=== PATIENT | male | born 1955 | race Caucasian/White ===

== ENCOUNTER 2018-07-20 18:42 | Inpatient (IN) | payer MEDICAID ==
[~2018-07-20] VITALS: Ht 162.5 cm; Wt 50.4 kg
--- NOTE | ~2018-07-20 | PR ---
[place], [place] PROGRESS NOTE NAME: DIANNA CURRY UNIT #: [id number] ROOM: 426 DOCTOR: JOEL MARSH MD BIRTHDATE: [birth year] DOS: 07/31/2018 SUBJECTIVE: The patient has a tracheostomy and has oxygen being delivered via a mask. He is awake and looks around little bit. He is not tachypneic. OBJECTIVE: VITAL SIGNS: Temperature is normal. NECK: JVP is normal. CARDIOVASCULAR: Clear to auscultation, no murmurs. LUNGS: He has some crackles, but breath sounds are fairly decent. EXTREMITIES: No edema in lower extremities. IMPRESSION: The patient has chronic respiratory failure. There is no evidence of heart failure. No new recommendations. JOEL MARSH MD CM:PNTRANS [id number] JOEL MARSH MD 08/01/18 1748 interface
--- NOTE | ~2018-07-20 | CON ---
[place], [place] REPORT OF CONSULTATION NAME: DIANNA CURRY UNIT #: [id number] ROOM: 426 DOCTOR: MAGNOLIA BEE MD BIRTHDATE: [birth year] DOS: 07/28/2018 CONSULTATION REQUESTED BY: Consultation for the patient was requested by Dr. Prashant Montenegro. REASON FOR CONSULTATION: To assess the patient's permanent tracheostomy and excessive secretion productions and other respiratory problems. HISTORY OF PRESENT ILLNESS: History could not be obtained from the patient since the patient has a permanent tracheostomy, unable to communicate, and does not have any normal mental status as well for communication. Review of the medical record documentation by the other physicians. HISTORY OF PRESENT ILLNESS: This is a 63-year-old white male patient who is a long-term resident of [facility]. The patient has been admitted to the hospital. The patient has been noted with acute drop of the hemoglobin and hematocrit for GI bleeding. He has been assessed for that. The patient has been also noted with significant increased secretion production from the tracheostomy as well on admission. The patient has a permanent tracheostomy in place for the [facility]p. He has a culture of the endotracheal secretions done on admission. The patient hospitalized on 07/20/2018 with noted Gram-negative bacterial isolation. Stool occult blood was also noted positive on admission. This morning of assessment, the patient does not show any signs of respiratory distress. Secretion production has been noted. Moderate to copious amount per nursing respiratory staff, required frequent suction. PAST MEDICAL HISTORY: 1. The patient reported history of COPD. 2. Chronic deep venous thrombosis of the lower extremity. 3. Chronic dysphagia. 4. Past pulmonary embolism. 5. 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 6. Ulcerative colitis. 7. Chronic respiratory failure, permanent tracheostomy, details for the patient of that, why was it done for this patient, unknown. PAST SURGICAL HISTORY: Reported: 1. PEG tube placement. 2. Tracheostomy. FAMILY HISTORY: Unknown. SOCIAL HISTORY: Not known as well exactly. MEDICATIONS: Medications which has been currently administered for this patient on admission, use of Pulmicort Respules, albuterol sulfate, Eliquis, Reglan, Protonix, magnesium oxide, vancomycin, and meropenem. DRUG ALLERGIES: REPORTED ALLERGIES TO PENICILLIN, THE ALLERGIC REACTIONS WERE [place], [place] REPORT OF CONSULTATION NAME: DIANNA CURRY UNIT #: [id number] ROOM: 426 DOCTOR: MAGNOLIA BEE MD BIRTHDATE: [birth year] UNKNOWN. PHYSICAL EXAMINATION: GENERAL: A 63-year-old male patient, currently comfortable, resting eyes closed without any acute distress. The patient's height was recorded by nursing staff. Height 5 feet 4 inches, weight 111 pounds, BMI 19. VITAL SIGNS: Temperature 100.2 degrees Fahrenheit and normal temperature recorded intermittently, respiratory rate of 18, heart rate of 84-90, blood pressure 119/71-118/62. Pulse oxygen saturation recorded on 6 L nasal cannula 99% saturation with ____. HEENT: Tracheostomy in place. NECK: Supple. Head was atraumatic. CARDIOVASCULAR: S1, S2 was audible. LUNGS: Patient was noted without any wheeze or crackle at the present time. ABDOMEN: Soft. PEG tube in place. EXTREMITIES: The patient with loss of muscle mass. There was no edema. SKIN: Visible skin. No lesions or rashes. MUSCULOSKELETAL: Otherwise noted without any gross deformities. LABORATORY DATA: Reviewed. The culture of the endotracheal aspirate on of this month, moderate growth of Proteus mirabilis sensitive to multiple antibiotics including meropenem and Zosyn. The vancomycin trough level on ____ 22.9. Blood culture from 07/24/2018, no bacterial growth. BMP that was done this morning was normal BUN and creatinine. Electrolytes normal. CBC this morning, WBC count 5.1, hemoglobin of 8.0, hematocrit 27.2. The chest x-ray that was done on 07/26/2018 was reviewed with the patient from the fax images shows tracheostomy noted in proper position. PICC line noted in place in the right arm. There was no acute pulmonary infiltration seen. IMPRESSION: 1. The patient has been noted with tracheobronchitis versus colonization of the ____ gram-negative infection, Proteus, which noted relatively resistant infection. 2. Permanent tracheostomy. The patient with respiratory failure, per patient which is noted chronic as well as oropharyngeal dysphagia, PEG tube in place. No acute recent GI bleeding, which has been assessed for this patient by GI services and the patient had a colonoscopy done as well as a polypectomy on 07/24/2018 which was noted to be tubular adenoma with low-grade dysplasia. 3. History of permanent atrial fibrillation with chronic anticoagulation with past history of deep venous thrombosis of lower extremities. PLAN AND MANAGEMENT: Continue anticoagulation, bronchodilator, antibiotic. Continue with fibrobronchoscopy next week for this patient upon availability of the schedule for the patient. Bronchodilators to be continued. The patient was also treated for coccygeal wound infection with MRSA with vancomycin. Other supportive therapy, plan, and management care plan for the patient will be continued as in progress. Supportive therapy, plan of management. No new or other changes at this time would be recommended from pulmonary standpoint. Changing will be made based on the availability of new data and other information as it becomes available. [place], [place] REPORT OF CONSULTATION NAME: DIANNA CURRY UNIT #: [id number] ROOM: 426 DOCTOR: MAGNOLIA BEE MD BIRTHDATE: [birth year] MAGNOLIA ESCALERA MD CM:CONSTR:REPORT OF CONSULTATION 1641 08/03/18 1021 interface
--- NOTE | ~2018-07-20 | PR ---
[place], [place] PROGRESS NOTE NAME: [facility]ANNA CURRY [facility] [id number] UNIT #: [id number] ROOM: 426 DOCTOR: ANITHA CRUZ MD BIRTHDATE: [birth year] DOS: 07/25/2018 SUBJECTIVE: The patient has been admitted to hospital for infected decubitus ulcer. He is on respirator with tracheostomy tube. He is not able to communicate what is happening to him. He is also having PEG tube placed for feeding and has been seen by Infectious specialist. He does have infected sacral decubitus ulcer with concern of osteomyelitis sepsis from the above, malnutrition and CT of the pelvis was done, which shows decubitus ulcer with swelling indicating osteomyelitis. No drainable abscess was identified. Sputum culture and sensitivity grew normal riley. CBC showed white count 5300, hemoglobin 8 grams, hematocrit 26, indicating anemia due to chronic disease. Basic metabolic profile showed glucose 148. Other values are normal. Vancomycin level is 11.2, which is normal. OBJECTIVE: VITAL SIGNS: His blood pressure is 112/62, pulse 92, respirations 24 and temperature 98.2. CHEST: Having no creps or rhonchi. HEART: Regular. ANITHA CRUZ MD CM:PNTRANS [id number] [id number] ANITHA CRUZ MD 09/04/18 0949 interface
--- NOTE | ~2018-07-20 | O ---
[place], [place] OPERATIVE NOTE NAME: DIANNA CURRY UNIT #: [id number] ROOM: 426 DOCTOR: RAFIQ TREVINO MD BIRTHDATE: [birth year] DOS: 07/21/2018 INDICATIONS: The patient with anemia, guaiac positivity, undergoing investigation. PROCEDURE: Today's procedure part of investigation is colonoscopy plus biopsy plus tattoo marking. PREMEDICATION: Propofol. SCOPE: Olympus folding colonoscope 10L video. REPORT: After putting the patient in left lateral position and application of lubricant to the scope, scope was introduced. Thereafter, under direct visualization, advanced through the length of colon without difficulty. About the proximal sigmoid colon area or about the splenic area, there is a large fungating polyp, which base of it is infiltrated. Multiple biopsies and photographic series from which was obtained, base of it was tattoo marked. Scope was negotiated to about mid transverse colon where the solid stool was confronted, photographed. The patient extubated. The patient has tolerated the procedure well. IMPRESSION: Large colonic polyp, status post biopsy and tattoo marking of a proximal sigmoid colon. PLAN AND DISCUSSION: Due to the status of this patient, I was hesitant to amputate the polyp, which was infiltrated. However, I do not think his polyp is a hindrance to continuation of his limited life and I do not see if feasible for him to undergo segmental colectomy and possibly ending of colostomy and then in future need of reversal and not a candidate for intubation. So, medically, I see if feasible to continue with conservative management with his pulmonary status and mental status that he has. He will be having to deal with much more serious adverse medical issues and is concerned about this polyps ____ pathology report. However, we will follow on the pathology. We will resume feeding. Guaiac positivity could be multi source, esophageal ulcers, duodenitis some from the polypoid lesion in the colon all has been appreciated. Thank you very much indeed. [place], [place] OPERATIVE NOTE NAME: DIANNA CURRY UNIT #: [id number] ROOM: 426 DOCTOR: RAFIQ TREVINO MD BIRTHDATE: [birth year] RAFIQ TREVINO MD CM:JOHN:OPERATIVE NOTE [phone] RAFIQ TREVINO MD 07/22/18 0157 interface
--- NOTE | ~2018-07-20 | PR ---
[place], [place] PROGRESS NOTE NAME: DIANNA CURRY UNIT #: [id number] ROOM: 426 DOCTOR: JW HAYNES MD,MAGNOLIA BIRTHDATE: [birth year] DOS: 07/30/2018 PULMONARY PROGRESS NOTE SUBJECTIVE: The patient was resting comfortably at this time with oxygen supplementation provided with a T-mask. Has not been reported any symptoms of fever or chills. The patient has not been reported in any respiratory distress per nursing staff. The patient does not communicate verbally. This afternoon assessment, the patient was resting comfortably on his bed. Getting oxygen supplementation via nasal cannula. PHYSICAL EXAMINATION: VITAL SIGNS: Temperature currently was noted as normal, respiratory rate of 18, heart rate 95, blood pressure 139/82. The pulse oxygen saturation with a T-mask 100% saturation of oxygen recorded. HEENT: Examination shows head was atraumatic. Eyes nonicterus. NECK: Supple. CARDIOVASCULAR: S1, S2 audible. LUNGS: Noted without any wheeze or crackles. ABDOMEN: Soft, nontender. EXTREMITIES: No new changes. IMPRESSION: Permanent tracheostomy, tracheobronchitis, retained secretions in the major airways. PLAN OF TREATMENT: Therapeutic bronchoscopy for the patient was planned to be done tomorrow. MAGNOLIA ESCALERA MD CM:PNTRANS [id number] MAGNOLIA HAYNES MD 07/31/18 0026 interface
--- NOTE | ~2018-07-20 | PR ---
[place], [place] PROGRESS NOTE NAME: DIANNA CURRY UNIT #: [id number] ROOM: 426 DOCTOR: AMBIKA DUNBAR MD BIRTHDATE: [birth year] DOS: 07/30/2018 I agree with the assessment and plan made by Katherin Gannon. I reviewed the labs and imaging and made the necessary changes in the note. Ambika Dunbar MD CM:PNTRANS [id number] AMBIKA DUNBAR MD 09/01/18 1112 interface
--- NOTE | ~2018-07-20 | PR ---
[place], [place] PROGRESS NOTE NAME: DIANNA CURRY UNIT #: [id number] ROOM: 426 DOCTOR: JOEL MARSH MD BIRTHDATE: [birth year] DOS: 07/24/2018 SUBJECTIVE: The patient has a trach and has oxygen through this with a mask. He is awake, but barely makes any communication. He does look around with his eyes. OBJECTIVE: VITAL SIGNS: Pulse is irregular at 100 beats per minute, blood pressure 141/71. NECK: JVP is normal. LUNGS: Breath sounds are shallow and difficult to determine if he has any adventitious sounds. EXTREMITIES: 1+ left pedal edema. No edema on the right. IMPRESSION: This patient does not show any evidence of cardiac decompensation. The patient has severe anemia and this is being attended to. An echocardiogram was ordered and presumably will be done today. JOEL MARSH MD CM:PNTRANS [id number] [id number] JOEL MARSH MD 07/24/18 1354 interface
--- NOTE | ~2018-07-20 | PR ---
[place], [place] PROGRESS NOTE NAME: DIANNA CURRY UNIT #: [id number] ROOM: 426 DOCTOR: MAGNOLIA BEE MD BIRTHDATE: [birth year] DOS: 08/02/2018 SUBJECTIVE: The patient was noted comfortable at this time. At this time, remains ____ tracheostomy in place, has been noted n.p.o. past midnight. Consent was obtained from the patient's daughter for the current general anesthesia for the bronchoscopy. He has been noted with chest congestion with spontaneous cough. Chest congestion was reported. Review of systems could not be obtained because the patient's unresponsiveness to the vocal commands. OBJECTIVE: VITAL SIGNS: Normal temperature, respiratory rate of 20, heart rate of 97, blood pressure 132/70. The pulse oxygen saturation recorded on ____ mask is 92% saturation. HEENT: Examination shows head was atraumatic. Tracheostomy in place. NECK: Supple. CARDIOVASCULAR: S1, S2 is audible. LUNGS: Noted without any wheeze or crackles at the present time. ABDOMEN: Soft, nontender. Bowel sounds are present. EXTREMITIES: Noted without any acute new changes at the present time. LABORATORY DATA: PT and PTT this morning were noted as normal. BMP this morning, normal BUN, creatinine and other electrolytes normal. CBC this morning: WBC count normal, hemoglobin 8, hematocrit 26.5, platelet count 314,000. IMPRESSION: 1. The patient with coughing, chest congestion, retained secretions in the airway, permanent tracheostomy. 2. Decubitus wound with Gram-negative infection and osteomyelitis of the sacral area, treated with the antibiotics. PLAN OF THERAPY: No changes in the plan for the patient at this time will be necessary. Continuation of other plan of management at this time. Usual care. Supportive plan of treatment and therapies. [place], [place] PROGRESS NOTE NAME: DIANNA CURRY UNIT #: [id number] ROOM: 426 DOCTOR: MAGNOLIA BEE MD BIRTHDATE: [birth year] MAGNOLIA ESCALERA MD CM:PNTRANS [phone] MAGNOLIA HAYNES MD 08/02/18 1558 interface
--- NOTE | ~2018-07-20 | PROC NOTE ---
[place], [place] PROCEDURE NOTE NAME: DIANNA CURRY UNIT #: [id number] ROOM: 426 DOCTOR: JW HAYNES MD,MAGNOLIA BIRTHDATE: [birth year] DOS: 08/02/2018 BRONCHOSCOPY NOTE PREOPERATIVE DIAGNOSES: Persistent coughing, chest congestion. POSTOPERATIVE DIAGNOSES: Removal of copious amounts of mucopurulent material in the left endobronchial tree, all of the bronchial subsegments, and smaller amounts present in the right upper, middle and lower lobe bronchi. Evidence of acute tracheobronchitis. PROCEDURE DESCRIPTION: Informed consent obtained from the patient's power of collections attorney who is her daughter. The patient was brought to the OR. General anesthesia was administered with a tracheostomy in place. The bronchoscope could not be introduced through the tracheostomy for this patient because of the smaller size. The procedure was completed orally. The bronchoscope advanced through the mouth with airway. The vocal cords and epiglottis were seen. The epiglottis noted yellowish in color and intermittent movement was noted. Bronchoscope advanced to the vocal cord and the tracheal lumen. The tracheostomy was identified in the trachea. I was able to pass the bronchoscope further down beyond the trachea to the distal portion of the tracheal lumen. Moderate amount of thick secretion present, which was suctioned out. Kandis noted sharp. Left main stem bronchus, left upper, lingular, lower bronchi noted with deeper impaction of the thick mucopurulent secretion yellowish in color, suctioned out to the kandis level. Small amount of mucus impaction noted in right upper, middle, lower lobe bronchi. All the secretion suctioned out clearly with the help of normal saline wash, sent for culture. Procedure was tolerated without difficulty. Culture was sent to the bronchial washing. Postoperative findings will be discussed with the patient's power of collections attorney. Later on, no family members were available after the procedure to discuss the current findings. MAGNOLIA ESCALERA MD CM:PROCNOTE:PROCEDURE NOTE [id number] MAGNOLIA HAYNES MD
--- NOTE | ~2018-07-20 | PR ---
[place], [place] PROGRESS NOTE NAME: DIANNA CURRY UNIT #: [id number] ROOM: 426 DOCTOR: INOCENCIO KAUR,OCTOBER BIRTHDATE: [birth year] DOS: 07/30/2018 SUBJECTIVE: The patient is a 63-year-old male who is being followed for an infected sacral decubitus with osteomyelitis. Cultures from the wound have grown E. coli and MRSA. He remains on Merrem and vancomycin. He is going to have a bronchoscopy tomorrow. He is chronically trached. According to his chart, he has had no emesis or diarrhea. The patient himself does not respond meaningfully. His eyes are open and he does track, but he does not follow simple commands or respond meaningfully. He has had no documented fevers. LABORATORY DATA: He has had no new labs done. CURRENT MEDICATIONS: Include vancomycin, Pulmicort, Merrem, Eliquis, Reglan, Protonix, Prozac, DuoNeb. PHYSICAL EXAMINATION: VITAL SIGNS: Temperature 98.5, pulse 95, respirations 18, BP 139/82. GENERAL: A 63-year-old male, in no acute distress. HEAD, EYES, EARS, NOSE AND THROAT: Normocephalic, no visible thrush. Trach; no purulent discharge or cellulitis around the trach. He is on KIRAN. He does tract, but does not respond meaningfully, has a tremor of the right upper extremity. LUNGS: Diminished bilaterally with poor inspiratory effort. Respirations even and unlabored. HEART: Regular rhythm, difficult to auscultate. ABDOMEN: Soft, nondistended. Positive bowel sounds. PEG site, no purulent discharge or cellulitis. EXTREMITIES: No edema or deformity, quite stiff systemically, all of his pedal digits and left hand digits with onychomycosis, has a PICC in the right upper extremity. Dressing dry and intact. No phlebitis, sacral decubitus dressed. 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 PLAN: He is to continue IV antibiotics, which will be changed over to vancomycin and ertapenem upon discharge for a total of 6 weeks, which will take him to 08/26/2017, followup on the bronchoscopy tomorrow. [employer] [place], [place] PROGRESS NOTE NAME: ORLANDOPARKBEREDIANNA UNIT #: [id number] ROOM: 426 DOCTOR: INOCENCIO KAUROCTOBER BIRTHDATE: [birth year] Ambika Dunbar MD CM:PNTRANS [id number] [id number] OCTOBER INOCENCIO KAUR 07/31/18 0211 interface
--- NOTE | ~2018-07-20 | PR ---
[place], [place] PROGRESS NOTE NAME: DIANNA CURRY UNIT #: [id number] ROOM: 426 DOCTOR: JW HAYNES MD,MAGNOLIA BIRTHDATE: [birth year] DOS: 08/01/2018 SUBJECTIVE: The patient noted comfortable at this time without any acute distress this morning. He has been noted without any symptoms of hemoptysis or distress, underwent debridement of the wound yesterday successfully without difficulty. He was planned for bronchoscopy to be done this morning. The patient was n.p.o. past midnight. The anesthesia consent could not be obtained for the patient's power of trust and estates attorney from the daughter at this time. OBJECTIVE: VITAL SIGNS: The patient has normal temperature, respiratory rate 20, heart rate 88, blood pressure 120/66. The pulse oxygen saturation recorded as 98% on KIRAN aspirate. HEENT: Examination shows head was atraumatic. Eyes: No icterus. NECK: Supple. CARDIOVASCULAR: S1, S2 audible. LUNGS: Without any wheeze or crackles. ABDOMEN: Soft, nontender. EXTREMITIES: No new change. IMPRESSION: 1. Tracheostomy retained secretions airways. 2. Osteomyelitis. 3. Wound infection at the patient's sacral area. PLAN OF MANAGEMENT: Continuation of the current plan of management at this time. The surgery has been rescheduled to be done tomorrow because of lack of the consent for the anesthesia. Other plan of therapy, patient will be continued as previously. No change in treatment will be needed today. MAGNOLIA ESCALERA MD CM:PNTRANS [phone] MAGNOLIA HAYNES MD 08/01/18 2324 interface
--- NOTE | ~2018-07-20 | PR ---
[place], [place] PROGRESS NOTE NAME: DIANNA CURRY UNIT #: [id number] ROOM: 426 DOCTOR: JW HAYNES MD,MAGNOLIA BIRTHDATE: [birth year] DOS: 08/05/2018 PULMONARY PROGRESS NOTE SUBJECTIVE: The patient is noted awake and alert, remains on oxygen supplementation with KIRAN mask. He has not been noted any acute hemodynamic instability at this time. The patient was not noted with verbal communication. OBJECTIVE: VITAL SIGNS: Which have been recorded show the temperature noted as normal, respiratory rate of 16, heart rate of 84, blood pressure 122/69. Pulse oxygen saturation on KIRAN mask was 98% saturation. HEENT: Tracheostomy is in place. CARDIOVASCULAR: S1 and S2 audible. LUNGS: Noted clear to auscultation bilaterally. ABDOMEN: Soft, nontender. Bowel sounds present. EXTREMITIES: No acute change. IMPRESSION: 1. The patient with stable respiratory status. Tracheobronchitis was noted with methicillin-resistant Staphylococcus aureus and gram-negative infection with Pseudomonas aeruginosa. 2. The patient with infection of the skin and osteomyelitis as well. PLAN OF TREATMENT: No changes in the plan of management at this time. Continuation of current therapy, plan of management, and care plan. Discharge planning is pending for transfer to a nursing facility. MAGNOLIA ESCALERA MD CM:PNTRANS [phone] MAGNOLIA HAYNES MD 08/06/18 0120 interface
--- NOTE | ~2018-07-20 | PR ---
[place], [place] PROGRESS NOTE NAME: DIANNA CURRY UNIT #: [id number] ROOM: 426 DOCTOR: JW HAYNES MD,MAGNOLIA BIRTHDATE: [birth year] DOS: 08/07/2018 PULMONARY PROGRESS NOTE SUBJECTIVE: His overall respiratory status remains unchanged. The patient has been noted with cough with intermittent sputum, which has been suctioned out from the tracheostomy. He has not been noted without any acute distress. Verbal communication was noted limited. He has not been noted any symptoms of hemodynamic instability. Other review of systems could not be completed because of lack of verbal communication. OBJECTIVE: VITAL SIGNS: This morning, normal temperature, respiratory rate 22, heart rate 95, blood pressure 132/70. The pulse oxygen saturation was recorded as 98% saturation. HEENT: Tracheostomy in place. NECK: Supple. Head was atraumatic. CARDIOVASCULAR: S1 and S2 audible. LUNGS: Wpat-kz-[id number] decreased breath sounds on the left side. ABDOMEN: Soft, nontender. EXTREMITIES: No edema, clubbing, or cyanosis. MUSCULOSKELETAL: Without any acute deformities. CENTRAL NERVOUS SYSTEM: Further assessment could not be performed. The patient was noted with resting tremors of the right upper extremity. LABORATORY AND DIAGNOSTIC DATA: The chest x-ray that was done was noted with evidence of left lower lobe infiltration with a small pleural effusion, appeared to be somewhat more prominent compared with the previous chest x-ray comparison. CBC this morning, WBC count normal, hemoglobin 7.5, hematocrit 25.0, platelet count 260,000. The culture of the ET aspirate with normal riley, preliminary Gram stain with many white blood cells with a few epithelial cells, a few gram-positive cocci in pairs and clusters. IMPRESSION: 1. The patient with area of atelectasis in the left lower lobe associated with small pleural fluid and acute tracheobronchitis, which has been treated with antibiotics for gram-positive, gram-negative coverage. 2. Permanent tracheostomy. PLAN OF MANAGEMENT: Antibiotic changes per recommendation from Infectious Disease Services. Follow the new culture results of endotracheal aspirate to assess the previously resolving acute infection and tracheobronchitis. Other supportive therapy and plan of management. Pleural fluid is noted small at this time. No further change in treatment otherwise will be necessary. [place], [place] PROGRESS NOTE NAME: DIANNA CURRY UNIT #: [id number] ROOM: 426 DOCTOR: MAGNOLIA BEE MD BIRTHDATE: [birth year] MAGNOLIA ESCALERA MD CM:PNTRANS [phone] 10 MAGNOLIA HAYNES MD 08/07/18 2312 interface
--- NOTE | ~2018-07-20 | PR ---
[place], [place] PROGRESS NOTE NAME: DIANNA CURRY UNIT #: [id number] ROOM: 426 DOCTOR: JOEL MARSH MD BIRTHDATE: [birth year] DOS: SUBJECTIVE: He looks around, but does not communicate verbally. He is comfortable. He is not tachypneic. OBJECTIVE: VITAL SIGNS: Pulse is regular 76, blood pressure 112/62. NECK: Normal JVP. HEART: No murmurs. LUNGS: He has rhonchi in both lungs. Chest x-ray a few days ago demonstrated no pulmonary edema. An echocardiogram was done and it showed normal LV systolic function. Normal RV systolic function as well. No significant valvular abnormalities were identified. IMPRESSION: The patient has chronic respiratory failure and no evidence of heart failure has been identified. JOEL MARSH MD CM:PNTRANS [id number] JOEL MARSH MD 07/25/18 1843 interface
--- NOTE | ~2018-07-20 | EKG ---
[place], [place] ELECTROCARDIOGRAM REPORT NAME: DIANNA CURRY UNIT #: [id number] ROOM: 426 DOCTOR: WILLIAMS DRAFT REPORT BIRTHDATE: [birth year] [facility] Test Date: 2018-07-20 Test Time: 19:22:25 Pat Name: DIANNA CURRY Department: Room: 426 Gender: M Home Health Aide Caregiver: Rosalba Parra : 1955 Requested By: NIKKIE ROY Order Number: [id number] Reading MD: Padmini Gannon MD Measurements Intervals [place] Rate: 92 P: 72 MT: 140 QRS: 55 QRSD: 91 T: 35 QT: 372 QTc: 461 Interpretive Statements Sinus rhythm Minimal ST depression, inferior leads Baseline wander in lead(s) I,III,aVL Electronically Signed On 07-21-2018 10:50:34 PST by Padmini Gannon MD CM:EKGRPT:ELECTROCARDIOGRAM REPORT 21 1050 NIKKIE ROY EPIPHANY DRAFT REPORT NIKKIE ROY
--- NOTE | ~2018-07-20 | O ---
[place], [place] OPERATIVE NOTE NAME: DIANNA CURRY UNIT #: [id number] ROOM: 426 DOCTOR: BELINDA GARCIA,RAFIQ BIRTHDATE: [birth year] DOS: 07/21/2018 INDICATIONS: The patient has presented with chief complaint of guaiac positivity, drop in H and H. PROCEDURE: Today's procedure part of investigation is panendoscopy and colonoscopy. PREMEDICATION: Propofol. SCOPE: Olympus forward-viewing gastroscope Q10 video. REPORT: After putting the patient in left lateral position and application of lubricant to the scope, the scope was introduced. Thereafter, under direct visualization, advanced through the length of the esophagus without difficulty. A 2 cm hiatal hernia was noticed. Gastric pouch was seen. Gastritis appreciated. Duodenitis noticed. Photographed. Scope was withdrawn back to the mid gastric pouch and the balloon of existing PEG tube was functional in place. Scope was withdrawn back again to the distal esophagus. 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 Photographed. The patient extubated. The patient has tolerated the procedure well. IMPRESSION: Reflux, esophageal ulcers, Krause's esophagus, gastritis, and duodenitis. PLAN AND DISCUSSION: We are going to make sure that this patient gets antireflux measures with elevation of the head of the bed at 12 inch elevation and also feeding per PEG tube can continue and also Protonix is going to become double dose 40 mg a.m. and p.m. per PEG and we are going to proceed on the other hand with colonoscopy. RAFIQ TREVINO MD CM:OPRECORD:OPERATIVE NOTE [phone] RAFIQ TREVINO MD 07/22/18 0150 interface
--- NOTE | ~2018-07-20 | CON ---
[place], [place] REPORT OF CONSULTATION NAME: DIANNA CURRY UNIT #: [id number] ROOM: 426 DOCTOR: HEVER STYLES DO BIRTHDATE: [birth year] DOS: 07/28/2018 CONSULTATION REQUESTED BY: Consultation for the patient was requested by Dr. Prashant Montenegro. REASON FOR CONSULTATION: To assess the patient's permanent tracheostomy and excessive secretion productions and other respiratory problems. HISTORY OF PRESENT ILLNESS: History could not be obtained from the patient since the patient has a permanent tracheostomy, unable to communicate, and does not have any normal mental status as well for communication. Review of the medical record documentation by the other physicians. HISTORY OF PRESENT ILLNESS: This is a 63-year-old white male patient who is a long-term resident of [facility]. The patient has been admitted to the hospital. The patient has been noted with acute drop of the hemoglobin and hematocrit for GI bleeding. He has been assessed for that. The patient has been also noted with significant increased secretion production from the tracheostomy as well on admission. The patient has a permanent tracheostomy in place for the skilled nursing. He has a culture of the endotracheal secretions done on admission. The patient hospitalized on 07/20/2018 with noted Gram-negative bacterial isolation. Stool occult blood was also noted positive on admission. This morning of assessment, the patient does not show any signs of respiratory distress. Secretion production has been noted. Moderate to copious amount per nursing respiratory staff, required frequent suction. PAST MEDICAL HISTORY: 1. The patient reported history of COPD. 2. Chronic deep venous thrombosis of the lower extremity. 3. Chronic dysphagia. 4. Past pulmonary embolism. 5. 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 6. Ulcerative colitis. 7. Chronic respiratory failure, permanent tracheostomy, details for the patient of that, why was it done for this patient, unknown. PAST SURGICAL HISTORY: Reported: 1. PEG tube placement. 2. Tracheostomy. FAMILY HISTORY: Unknown. SOCIAL HISTORY: Not known as well exactly. MEDICATIONS: Medications which has been currently administered for this patient on admission, use of Pulmicort Respules, albuterol sulfate, Eliquis, Reglan, Protonix, magnesium oxide, vancomycin, and meropenem. DRUG ALLERGIES: REPORTED ALLERGIES TO PENICILLIN, THE ALLERGIC REACTIONS WERE [place], [place] REPORT OF CONSULTATION NAME: DIANNA CURRY UNIT #: [id number] ROOM: 426 DOCTOR: HEVER STYLES DO BIRTHDATE: [birth year] UNKNOWN. PHYSICAL EXAMINATION: GENERAL: A 63-year-old male patient, currently comfortable, resting eyes closed without any acute distress. The patient's height was recorded by nursing staff. Height 5 feet 4 inches, weight 111 pounds, BMI 19. VITAL SIGNS: Temperature 100.2 degrees Fahrenheit and normal temperature recorded intermittently, respiratory rate of 18, heart rate of 84-90, blood pressure 119/71-118/62. Pulse oxygen saturation recorded on 6 L nasal cannula 99% saturation with ____. HEENT: Tracheostomy in place. NECK: Supple. Head was atraumatic. CARDIOVASCULAR: S1, S2 was audible. LUNGS: Patient was noted without any wheeze or crackle at the present time. ABDOMEN: Soft. PEG tube in place. EXTREMITIES: The patient with loss of muscle mass. There was no edema. SKIN: Visible skin. No lesions or rashes. MUSCULOSKELETAL: Otherwise noted without any gross deformities. LABORATORY DATA: Reviewed. The culture of the endotracheal aspirate on of this month, moderate growth of Proteus mirabilis sensitive to multiple antibiotics including meropenem and Zosyn. The vancomycin trough level on ____ 22.9. Blood culture from 07/24/2018, no bacterial growth. BMP that was done this morning was normal BUN and creatinine. Electrolytes normal. CBC this morning, WBC count 5.1, hemoglobin of 8.0, hematocrit 27.2. The chest x-ray that was done on 07/26/2018 was reviewed with the patient from the fax images shows tracheostomy noted in proper position. PICC line noted in place in the right arm. There was no acute pulmonary infiltration seen. IMPRESSION: 1. The patient has been noted with tracheobronchitis versus colonization of the ____ gram-negative infection, Proteus, which noted relatively resistant infection. 2. Permanent tracheostomy. The patient with respiratory failure, per patient which is noted chronic as well as oropharyngeal dysphagia, PEG tube in place. No acute recent GI bleeding, which has been assessed for this patient by GI services and the patient had a colonoscopy done as well as a polypectomy on 07/24/2018 which was noted to be tubular adenoma with low-grade dysplasia. 3. History of permanent atrial fibrillation with chronic anticoagulation with past history of deep venous thrombosis of lower extremities. PLAN AND MANAGEMENT: Continue anticoagulation, bronchodilator, antibiotic. Continue with fibrobronchoscopy next week for this patient upon availability of the schedule for the patient. Bronchodilators to be continued. The patient was also treated for coccygeal wound infection with MRSA with vancomycin. Other supportive therapy, plan, and management care plan for the patient will be continued as in progress. Supportive therapy, plan of management. No new or other changes at this time would be recommended from pulmonary standpoint. Changing will be made based on the availability of new data and other information as it becomes available. [place], [place] REPORT OF CONSULTATION NAME: DIANNA CURRY UNIT #: [id number] ROOM: 426 DOCTOR: HEVER STYLES DO BIRTHDATE: [birth year] HEVER STYLES DO CM:CONSTR:REPORT OF CONSULTATION 1641 07/30/18 0513 interface
--- NOTE | ~2018-07-20 | PR ---
[place], [place] PROGRESS NOTE NAME: DIANNA CURRY UNIT #: [id number] ROOM: 426 DOCTOR: MAGNOLIA BEE MD BIRTHDATE: [birth year] DOS: 08/04/2018 SUBJECTIVE: He has a bronchoscopy completed for the patient on this admission with copious amount of thick mucopurulent material removed. Predominance towards the left endobronchial tree. The patient has been noted to be awake and alert this morning. Tracheostomy remains in place. OBJECTIVE: VITAL SIGNS: For patient, which were noted as normal temperature, respiratory rate 20, heart rate 98, blood pressure 121/64. Pulse ox saturation on ____ 98% saturation. HEENT: Examination shows no new change. CARDIOVASCULAR: S1, S2 is audible. LUNGS: The patient was noted without any wheezing or crackles at the present time. ABDOMEN: Soft, flat, nontender. EXTREMITIES: No acute changes. LABORATORY DATA: Culture of the bronchial washing heavy growth of Pseudomonas aeruginosa and MRSA was noted. IMPRESSION: 1. Severe tracheobronchitis. The patient with a combination gram-negative infection, Pseudomonas aeruginosa and methicillin-resistant staphylococcus aureus. 2. 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 3. Permanent tracheostomy. PLAN OF MANAGEMENT: No changes in the plan of care at this time. Continue the patient's current therapy as in progress. Other usual care. Supportive plan of management. DISCHARGE PLANNING: The patient in conjunction with the recommendation for the infection is already assessing for the management of current infection with appropriate antibiotics needed. [place], [place] PROGRESS NOTE NAME: DIANNA CURRY UNIT #: [id number] ROOM: 426 DOCTOR: MAGNOLIA BEE MD BIRTHDATE: [birth year] MAGNOLIA ESCALERA MD CM:PNTRANS 1206 15 MAGNOLIA HAYNES MD 08/04/181916 interface
--- NOTE | ~2018-07-20 | CON ---
[place], [place] REPORT OF CONSULTATION NAME: DIANNA CURRY UNIT #: [id number] ROOM: 426 DOCTOR: PENELOPE DUNBAR MD BIRTHDATE: [birth year] DOS: REASON FOR CONSULTATION: Infected decubitus ulcers. CHIEF COMPLAINT: Anemia, drop in hemoglobin. HISTORY OF PRESENT ILLNESS: This is a 63-year-old male who is a resident of [facility], has been transferred because of low hemoglobin and ID has been consulted because of infected decubitus ulcers and the patient having low-grade fevers since last 2 days. Overnight, he has been started on vancomycin and ceftriaxone and his wound cultures from his back are growing ESBL E. coli as well as MRSA. Currently, the patient is nonverbal. He has a tracheostomy done. He is awake and sweating a lot. His vitals do reveal a low-grade fever, T-max of 101.6 in the last 24 hours and labs do not reveal any leukocytosis. His C-reactive protein is 5.57. There is no imaging done at this admission. He has seen by General Surgery as well for which he underwent debridement of sacral decubitus ulcer on 07/21/2018. PAST MEDICAL HISTORY: Significant for AFib, catatonic disorder, chronic respiratory failure, ulcerative proctitis, COPD, hypertension, PE, pulmonary nodule. PAST SURGICAL HISTORY: Tracheostomy and PEG tube placement. SOCIAL HISTORY: Nonsmoker, nonalcoholic, no illicit drug use. ALLERGIES: PENICILLIN, nonspecific. HOME MEDICATIONS: Reviewed. REVIEW OF SYSTEMS: Cannot be obtained as the patient is nonverbal. PHYSICAL EXAMINATION: VITAL SIGNS: Noted, mentioned in HPI. GENERAL: The patient is awake, but unresponsive, arousable to voice commands. Has a tracheostomy collar in place, sweating a lot. HEENT: Atraumatic, normocephalic. PERRLA, EOMI. RESPIRATORY: Air entry bilaterally equal. No wheeze or crackles. HEART: S1, S2 normal. ABDOMEN: Soft, nontender, nondistended. Bowel sounds present. EXTREMITIES: Bilateral lower extremity, no edema. SKIN: Warm and dry. Skin examination of lower extremity at the back, he has sacral decubitus ulcer, which is large with undermining of edges, purulent discharge, mucopurulent discharge, foul smell. LABORATORY DATA AND IMAGING: Reviewed, mentioned in HPI. ASSESSMENT AND PLAN: 1. Infected sacral decubitus ulcer with concern for osteomyelitis. 2. Sepsis from above. [place], [place] REPORT OF CONSULTATION NAME: DIANNA CURRY UNIT #: [id number] ROOM: 426 DOCTOR: PENELOPE DUNBAR MD BIRTHDATE: [birth year] 3. Malnutrition, failure to thrive. PLAN: At this time, the patient is having low-grade fevers, need stat two sets of blood cultures. Keep on vancomycin and meropenem. Although, he underwent debridement of his ulcers on 07/21/2018, he still has a lot of mucopurulent discharge and I am ordering a CT abdomen and pelvis without contrast to look for any underlying abscess/osteomyelitis. Overall, the patient's prognosis is poor. I would recommend for a palliative care and also if application of wound a VAC will help in the healing of the wounds. Will follow the patient closely. Thank you for your consult. Please call for any questions. Penelope Dunbar MD CM:CONSTR:REPORT OF CONSULTATION 1106 07/24/18 1708 interface
--- NOTE | ~2018-07-20 | CON ---
[place], [place] REPORT OF CONSULTATION NAME: DIANNA CURRY UNIT #: [id number] ROOM: 426 DOCTOR: RAFIQ TREVINO MD BIRTHDATE: [birth year] DOS: 07/21/2018 GASTROENDOSCOPIC REPORT HISTORY OF PRESENT ILLNESS: The patient has presented with multiple issues among which has been GI bleed, anemia, and respiratory insufficiency, status post tracheostomy; large sacral wound from fpc. PAST MEDICAL HISTORY: Associated with ulcerative proctitis, COPD, DVT, hypertension, and major depression. PAST SURGICAL HISTORY: Status post existing PEG and tracheostomy. MEDICATIONS: Medication list has been reviewed that includes ferrous sulfate 3 t.i.d. ALLERGIES: THE PATIENT IS ALLERGIC TO PENICILLIN. SOCIAL HISTORY: He is a nonsmoker, nonalcohol consumer. REVIEW OF SYSTEMS: Cannot be obtained from him. No cognitive capabilities. PHYSICAL EXAMINATION: VITAL SIGNS: Stable. Cognitively noncommunicable. Respiratory insufficiency with tracheostomy in place. HEENT: Head is normocephalic, nontraumatic. Mouth and buccal mucosa is dry. NECK: Supple. No thyromegaly. Tracheostomy in place. LUNGS: Respiratory assisted breath with tracheostomy. HEART: Irregular irregularity. ABDOMEN: Soft. No hepato-organomegaly. Bowel sounds present. No pulsatile mass. EXTREMITIES: No cyanosis. No pedal edema. NEUROLOGIC: He is somnolent and nonunassessable. LABORATORY DATA: Labs reviewed. Records reviewed. The latest data that is found shows that his H and H at the time was 8 and 28. He remained guaiac positive. INR is 1.1. Comprehensive metabolic panel, electrolyte not balanced, liver function test is normal. IMPRESSION: Gastrointestinal bleed, source unknown, occult guaiac is positive, anemia, respiratory insufficiency, hypertension, atrial fibrillation, protein-calorie malnutrition, status post PEG, status post tracheostomy, and large decubitus ulcer, status post debridement. PLAN AND DISCUSSION: We are going to proceed with EGD and colonoscopy. [place], [place] REPORT OF CONSULTATION NAME: DIANNA CURRY UNIT #: [id number] ROOM: 426 DOCTOR: RAFIQ TREVINO MD BIRTHDATE: [birth year] RAFIQ TREVINO MD CM:CONSTR:REPORT OF CONSULTATION 1554 07/22/18 0432 interface
--- NOTE | ~2018-07-20 | PR ---
[place], [place] PROGRESS NOTE NAME: DIANNA CURRY UNIT #: [id number] ROOM: 426 DOCTOR: JOEL MARSH MD BIRTHDATE: [birth year] DOS: 07/26/2018 SUBJECTIVE: He is awake, watching TV. When I asked him to look at me, he did make eye contact and when asked him to take deep breaths and while auscultating his lungs, he did that too. OBJECTIVE: GENERAL: He is very comfortable. VITAL SIGNS: Temperature is normal, pulse is 84 and regular, blood pressure 125/66. NECK: JVP is normal. AJR is negative. No murmurs are present. LUNGS: He has rhonchi in both lungs with reduced breath sound. When asked him to take deep breaths, his breath sounds do improve significantly. EXTREMITIES: No edema over the buttocks or the legs. LABORATORY DATA: Monitor shows normal sinus rhythm. IMPRESSION: 1. Tachycardia. Heart rate is found to be good and he remains in sinus rhythm. 2. No evidence of cardiac decompensation. 3. An echocardiogram was done, which showed normal LV systolic function, no significant valvular abnormalities. 4. Hypertension, this is controlled as well. JOEL MARSH MD CM:PNTRANS 1651 [id number] JOEL MARSH MD 08/15/18 0915 interface
--- NOTE | ~2018-07-20 | PR ---
[place], [place] PROGRESS NOTE NAME: DIANNA CURRY UNIT #: [id number] ROOM: 426 DOCTOR: JW HAYNES MD,MAGNOLIA BIRTHDATE: [birth year] DOS: 08/06/2018 PULMONARY PROGRESS NOTE SUBJECTIVE: The patient is noted comfortable at this time with intermittent moderate secretion and production from the tracheostomy. He has been noted awake and alert without any distress during this morning of assessment. Oxygen supplementation was continued with KIRAN mask. OBJECTIVE: VITAL SIGNS: Normal temperature at 99.5 degree Fahrenheit, respiratory rate 20, heart rate 102, blood pressure 118/72. Pulse oxygen saturation was recorded as 92% saturation. HEENT: Tracheostomy is in place. NECK: Supple. CARDIOVASCULAR: S1 and S2 audible. LUNGS: The patient was noted without any wheeze or crackles. ABDOMEN: Soft and nontender. Bowel sounds present. EXTREMITIES: The patient was noted without any acute edema. IMPRESSION: The patient with tracheobronchitis as well as infection of wound at decubitus, gram-positive and gram-negative infection, isolated, bronchoscopy. He should be treated with antibiotic per recommendation of Infectious Disease specialist. PLAN OF MANAGEMENT: Repeat another cultures today. Ordered a chest x-ray, portable, to assess interval development of any new problems since previous assessment with the x-ray. MAGNOLIA ESCALERA MD CM:PNTRANS 1508 [id number] MAGNOLIA HAYNES MD 08/07/18 0001 interface
--- NOTE | ~2018-07-20 | PR ---
[place], [place] PROGRESS NOTE NAME: DIANNA CURRY UNIT #: [id number] ROOM: 426 DOCTOR: JOEL MARSH MD BIRTHDATE: [birth year] DOS: 07/28/2018 SUBJECTIVE: The patient is lying in bed and has oxygen over the tracheostomy tube. He is not tachypneic. His complexion is pale. Skin is rather waxy. PHYSICAL EXAMINATION: GENERAL: This patient is not tachypneic. VITAL SIGNS: Respiration is 18, heart rate 84 regular, blood pressure 123/62. NECK: Normal JVP. A lot of anterior and posterior rhonchi and some crackles. LUNGS: Auscultation of the lungs with reduced breath sounds with lot of rhonchi anteriorly and posteriorly. Some crackles. EXTREMITIES: No edema in lower extremities. LABORATORY DATA: Hemoglobin 8 g/dL. BUN is 19, creatinine 0.66. IMPRESSION: 1. This patient has history of atrial fibrillation, but rhythm is regular now. 2. He does not have any heart failure. 3. Chronic bronchitis with chronic respiratory failure is present. No new recommendations. JOEL MARSH MD CM:PNTRANS 1649 [id number] JOEL MARSH MD 07/29/18 0839 interface
--- NOTE | ~2018-07-20 | PR ---
[place], [place] PROGRESS NOTE NAME: DIANNA CURRY UNIT #: [id number] ROOM: 426 DOCTOR: MAGNOLIA BEE MD BIRTHDATE: [birth year] DOS: 08/03/2018 PULMONARY PROGRESS NOTE SUBJECTIVE: The patient remains in the hospital at this time. He has been noted with gradual reduction of the symptoms. Significant reduction of chest congestion noted from bronchoscopy which was completed yesterday. He has been noted comfortable at this time, receiving oxygen supplementation ____ mask. OBJECTIVE: VITAL SIGNS: Normal temperature, respiratory rate 18, heart rate 82, blood pressure 113/62. The pulse oxygen saturation of the patient recorded as 95% on ____ mask. HEENT: Tracheostomy in place. NECK: Supple. CARDIOVASCULAR: S1, S2 audible. LUNGS: The patient was noted without any wheezing or crackles at the present time. ABDOMEN: Soft, nontender. EXTREMITIES: No acute edema. LABORATORY DATA: Culture of the bronchial washing noted heavy growth of Gram-negative bacilli, pending identification sensitivities. Gram stain many white blood cells, moderate gram-positive cocci in pairs and clusters. IMPRESSION: 1. The patient with gram-negative bacilli tracheobronchitis noted, pending identification and sensitivity. 2. Wound infection, osteomyelitis of the sacral area. 3. Permanent tracheostomy with respiratory failure. PLAN OF MANAGEMENT: No changes in the plan of management. Monitor culture results. Continuation of bronchodilator therapy, plan of management as in progress. Additional treatment changes recommended based on the progression of the illness. [place], [place] PROGRESS NOTE NAME: DIANNA CURRY UNIT #: [id number] ROOM: 426 DOCTOR: MAGNOLIA BEE MD BIRTHDATE: [birth year] MAGNOLIA ESCALERA MD CM:PNTRANS [phone] MAGNOLIA HAYNES MD 08/03/18 1827 interface
--- NOTE | ~2018-07-20 | CON ---
[place], [place] REPORT OF CONSULTATION NAME: DIANNA CURRY UNIT #: [id number] ROOM: 426 DOCTOR: JOEL MARSH MD BIRTHDATE: [birth year] DOS: HISTORY OF PRESENT ILLNESS: This is a half-way patient who has a major depressive disorder and also catatonic disorder, chronic respiratory failure, then had a tracheostomy, COPD, essential hypertension, pulmonary embolism. He has a PEG tube and tracheostomy. The patient does note to communicate at all. He is awake. The patient's EMR was reviewed. He was noted to have developed worsening anemia with a hemoglobin dropping from 8.1 to 7.7 and was brought to the hospital. EGD was done by Dr. Vasquez. He was found to have Krause's esophagus, esophagitis with duodenitis and gastritis. HOME MEDICATIONS: Include ascorbic acid, Biscolax, Dulcolax, 40 mg of enoxaparin and subcutaneous daily, ferrous sulfate, fluoxetine 20 daily and ipratropium and albuterol aerosol treatments, multivitamins and nutritional supplements. PHYSICAL EXAMINATION GENERAL: Reveals a patient who is awake. He looks around a little bit. He is not verbally communicative and does not make eye contact much. He looks little pale. He is not diaphoretic. He is not tachypneic. VITAL SIGNS: Pulse is 88 and regular, blood pressure 115/68. NECK: JVP is normal. There is no carotid bruit. HEART: Auscultation reveals no murmurs or rubs. EXTREMITIES: Pedal pulses are easily appreciated and he does not have edema in the lower extremities. RESPIRATORY: He had tracheostomy. He is not tachypneic. Percussion and auscultation reveals reduced breath sounds and rhonchi in both lungs. No wheezing. DIAGNOSTIC STUDIES: ECG showed normal sinus rhythm with a minimal ST segment depression in inferior leads, probably not significant. No chest x-ray was done. LABORATORY DATA: Hemoglobin now is 8.6 g/dL and BUN is 15, creatinine 0.67, potassium 4.5, serum albumin 2.2 g/dL. IMPRESSION: 1. Severe anemia, probably from chronic blood loss from upper gastrointestinal pathology. 2. The patient is in sinus rhythm and EKG shows minimal abnormality and I doubt if there is any underlying coronary artery issues. 3. The patient does not display any evidence of cardiac decompensation. 4. An echocardiogram has previously been ordered and I will review it once done. I thank you for this consult. [place], [place] REPORT OF CONSULTATION NAME: DIANNA CURRY UNIT #: [id number] ROOM: 426 DOCTOR: SALMA GARCIA,JOEL BIRTHDATE: [birth year] JOEL MARSH MD CM:CONSTR:REPORT OF CONSULTATION [id number] 07/23/18 2344 interface
--- NOTE | ~2018-07-20 | PR ---
[place], [place] PROGRESS NOTE NAME: DIANNA CURRY UNIT #: [id number] ROOM: 426 DOCTOR: JW HAYNES MD,MAGNOLIA BIRTHDATE: [birth year] DOS: 07/29/2018 SUBJECTIVE: The patient remains in the hospital, noted with excessive congestion this morning with some secretion suctioned from the tracheostomy as well. The patient remains unresponsive, but comfortable. The daughter was present in the room with the patient this morning of assessment. OBJECTIVE: VITAL SIGNS: Normal temperature, respiratory rate 18, heart rate of 95, blood pressure 124/72. The pulse oxygen saturation on ____ at 28% oxygen 96% saturation. HEENT: Tracheostomy placed. NECK: Supple. CARDIOVASCULAR: S1, S2 is audible. LUNGS: Without any wheezing or crackle, rhonchorous breathing was noted. ABDOMEN: Soft, nontender. Bowel sounds present. EXTREMITIES: No new changes. IMPRESSION: The patient's wound infection as well as retained secretions, endobronchial tree with tracheobronchitis without any evidence of pneumonia, radiologically. PLAN OF TREATMENT: Proceed with the fibrobronchoscopy as planned for this patient on Tuesday morning. Other plan of therapy including antibiotic. We will continue without any changes at this time. MAGNOLIA ESCALERA MD CM:PNTRANS [phone] MAGNOLIA HAYNES MD 07/29/18 1745 interface
--- NOTE | ~2018-07-20 | PR ---
[place], [place] PROGRESS NOTE NAME: DIANNA CURRY UNIT #: [id number] ROOM: 426 DOCTOR: JW HAYNES MD,MAGNOLIA BIRTHDATE: [birth year] DOS: 07/31/2018 PULMONARY PROGRESS NOTE SUBJECTIVE: The patient has been noted to have seen without any acute distress, has been continued on the antibiotics at the present time. Has not been noted any change in respiratory status, still noted chest congestion and cough. The patient was planned for debridement of the wound, sacral area. The patient with osteomyelitis. Plan for today to be done by the General Surgery staff. OBJECTIVE: VITAL SIGNS: Normal temperature, respiratory rate of 18, heart rate 88, blood pressure 70/65. Pulse oxygen saturation on ____ mask was 99-100% saturation. HEENT: Examination shows no acute change. CARDIOVASCULAR: S1, S2 is audible. LUNGS: The patient without any wheeze or crackles. ABDOMEN: Soft, nontender. IMPRESSION: The patient who has been currently noted with a permanent tracheostomy, retained secretions, ____ possibility of tracheobronchitis. Wound infection and sacral osteomyelitis with gram-negative infection. PLAN OF MANAGEMENT: No changes from the pulmonary standpoint at this time. Continue the patient's current therapy as in progress. Usual care. Bronchoscopy for the patient will be done tomorrow morning. MAGNOLIA ESCALERA MD CM:PNTRANS [id number] MAGNOLIA HAYNES MD 08/01/18 0008 interface
[2018-07-20 19:00] VITALS: BP 145/70
[2018-07-20 19:28] LABS: BASO % 0.6 % (0.0-1.0); EOS # 0.3 10*3/uL (0.0-0.4); EOS % 4.4 % (1.0-4.0); HEMATOCRIT 25.9 % (42.0-52.0); HEMOGLOBIN 7.7 g/dl (14.0-18.0); LYMPH # 1.4 10*3/uL (1.3-4.4); LYMPH % 19.3 % (27.0-41.0); MEAN CELL VOLUME 82.5 fl (80.0-94.0); MEAN CORPUSCULAR HGB 24.5 pg (27.0-31.0); MEAN CORPUSCULAR HGB CONC 29.7 g/dl (33.0-37.0); MEAN PLATELET VOLUME 11.3 fl (9.6-12.3); MONO # 0.7 10*3/uL (0.1-1.0); MONO % 9.6 % (3.0-9.0); NEUT # 4.6 10*3/uL (2.3-7.9); NEUT % 65.7 % (47.0-73.0); PLATELET COUNT AUTOMATED 275 10*3/uL (130-400); RED BLOOD COUNT 3.14 10*6/uL (4.50-5.90); RED CELL DISTRI WIDTH 17.1 % (0-14.5)
[2018-07-20 19:38] LABS: ACT PARTIAL THROMBO TIME 24.2 SECONDS (20.8-31.5)
[2018-07-20 19:45] LABS: ALBUMIN 2.3 gm/dl (3.1-4.5); ALKALINE PHOSPHATASE 83 U/L (45-117); BUN 24 mg/dl (7-24); CHLORIDE 101 mmol/L (98-107); CREATININE 0.77 mg/dL (0.70-1.30); LIPASE 486 U/L (73-393); POTASSIUM 4.2 mmol/L (3.5-5.1); SGOT/AST 19 IU/L (3-35); SGPT/ALT 32 U/L (12-78); SODIUM 136 mmol/L (136-145); TOTAL PROTEIN 6.9 gm/dL (6.4-8.2)
[2018-07-20 19:48] LABS: TROPONIN I < 0.015 ng/ml (<0.045)
--- NOTE | 2018-07-20 20:09 | NUR ---
LAB CALLED AND REPORT UNIT OF BLOOD ORDERED IS READY BUT IF GIVING WILL NEED TRANSFUSE ORDER.
[2018-07-20 20:26] VITALS: BP 124/67
--- NOTE | 2018-07-20 21:19 | NUR ---
THIS RN SPOKE WITH KELSY AT [facility] AND UPDATED HER ON PT PLAN OF ADMISSION.KELSY ADVISES PT 02 SETTING IS 26% AND PT WAS REPORTED TO HAVE SKIN BREAKDOWN TO BUTTOCKS.THIS RN WILL ASSESS FOR PT WOUNDS.
--- NOTE | 2018-07-20 21:48 | NUR ---
LAB CALLED AND ADVISED PER [facility] UNIT OF BLOOD IS ON HOLD AT THIS TIME.
--- NOTE | 2018-07-20 22:01 | NUR ---
PT HAS LARGE UNSTAGEABLE WOUND TO BUTTOCKS.PHOTO TAKEN.PT FINGERNAILS LONG IN LENGTH AND WEARS HAND MITTENS.TEXAS CATHETER IN PLACE.PEG TUBE IN PLACE AND INTACT,NO SIGNS BREAKDOWN NOTED TO AREA OF PEG TUBE AT THIS TIME.AREA OF BLANCHABLE REDNESS NOTED TO BILAT HEELS.
[2018-07-20 23:00] VITALS: BP 126/78
--- NOTE | 2018-07-20 23:10 | NUR ---
PT. SUCTIONED FOR LARGE AMOUNTS CLEAR VERY THICK SPUTUM FROM TRACH. INTER CANNULA CLEANED AND AREA AROUNG THE TRACH CLEANED. CLEAN TRACH DRESSING. THANKS JONH
[2018-07-20] MEDS ORDERED: VITAMIN C500 M8 PEG (23:22)
[2018-07-20] MEDS ORDERED: BISCOLAX10 M1 R (23:23)
[2018-07-20] MEDS ORDERED: DULCOLAX10 M1 R (23:24)
[2018-07-20] MEDS ORDERED: FEOSOL325 MG PO (23:25)
[2018-07-20] MEDS ORDERED: NOVAPLUS L40 MG/0.4 SC (23:25)
[2018-07-20] MEDS ORDERED: FLUOXETINE HCL20 M2 PEG (23:26)
[2018-07-20] MEDS ORDERED: Ipratropium Brom3 ML INH (23:28)
[2018-07-20] MEDS ORDERED: MILK OF MA400 MG/5 M PO (23:32)
[2018-07-20] MEDS ORDERED: SENNO8.6 MG PEG (23:33)
[2018-07-20] MEDS ORDERED: MIRALAX17 GM PEG (23:33)
[2018-07-20] MEDS ORDERED: THERA-M1 EACH PEG (23:35)
[2018-07-20] MEDS ORDERED: JEVITY 1 CAL237 ML PEG (23:41)
--- NOTE | 2018-07-20 23:41 | NUR ---
MED REC UPDATED VIA LIST FROM [facility]
[2018-07-21] VITALS (13 sets, daily range): BP systolic 100–128; BP diastolic 59–79
--- NOTE | 2018-07-21 03:30 | NUR ---
CONSENT OBTAINED FOR BLOOD FROM PATIENTS DAUGHTER DARRIUS DUARTE. VERIFIED BY TWO RNS.
--- NOTE | 2018-07-21 03:30 | NUR ---
CONTACTED [facility] ABOUT POA/LIVING WILL. STATES SHE DID NOT SEE ONE AND THE ONLY THING SHE SAW WAS A NEXT OF KIN, DAUGHTER DARRIUS DUARTE.
--- NOTE | 2018-07-21 04:10 | NUR ---
1UNIT PRBC STARTED AT THIS TIME.
--- NOTE | 2018-07-21 05:00 | NUR ---
CRYSTAL IN TO ASSESS PATIENTS WOUND. THERAHONEY, MAXORB AND SACRAL OPTIFOAM APPLIED.
--- NOTE | 2018-07-21 06:45 | NUR ---
NOTIFIED DR TREVINO OF CONSULT AND PATIENTS POSITIVE FECAL OCCULT, AND HGB 7.7. ORDERS FOR AN EGD/COLO TODAY, FLEETS ENEMA FOLLOWED BY TAP WATER TILL CLEAR.
--- NOTE | 2018-07-21 06:55 | NUR ---
DIANNA CURRY [id number] Please refer to the physician's history and physical for past medical history, comorbid conditions, and allergies. Diagnosis: ANEMIA, OCCULT BLOOD POSITIVE STOOL Dominic Score: 10,HIGH RISK WOUND DESCRIPTIONS: Location of the wound: coccyx Type of wound: stage 4 Thickness: Full Size: 8.5cm x 6.5cm x 1.0cm Tunneling: none Undermining: none Sinus Tract: none Presence of Exudate: Serosanguineous Amount: Moderate Color: Brown, red, yellow Odor: Medium Periwound Skin Appearance: Erythema Wound edges: approximated Pain (associated with wound): none at time of assessment How does patient state this happened? pt unable to state how this happened Patient has several red blanchable areas located to bilateral feet. Surface the patient is resting on: Isoflex SKIN PREVENTION RECOMMENDATION: 1. Pressure redistribution support surface as appropriate 2. Elevate heels 3. Remove boots/TEDS every shift and reapply 4. Head of bed 30 degrees as tolerated 5. Assess nutrition and hydration 6. Manage moisture 7. Avoid the use of containment devices while in bed 8. Use absorptive products on surfaces limit layers of linens on bed 9. Turn and reposition every 1-2 hours in bed and every 1 hour in chair as tolerated 10. Weight shifts every 15 minutes while up in chair 11. Offloading with pillows or device to keep heels elevated off bed 12. Monitor skin at least every shift 13. Inspect under medical devices twice a day WOUND TREATMENT RECOMMENDATIONS: Consult Eliana POLO-KELLEN for possible debridement. Stage 4 guidelines: Cleanse coccyx wound with nss and apply sureprep around the wound therahoney to wound bed light pack with maxorb ag and cover with optifoam sacral gentle. Wheelchair cushion when oob. Heel raiser pro boots while in bed. Recommend follow up for wound care in outpatient setting patient being discharge to another facility at this time.
--- NOTE | 2018-07-21 07:00 | NUR ---
1 UNIT PRBC COMPLETE AT THIS TIME
[2018-07-21 07:52] LABS: BASO % 0.5 % (0.0-1.0); EOS # 0.3 10*3/uL (0.0-0.4); EOS % 5.2 % (1.0-4.0); HEMATOCRIT 27.6 % (42.0-52.0); HEMOGLOBIN 8.5 g/dl (14.0-18.0); LYMPH # 1.5 10*3/uL (1.3-4.4); LYMPH % 25.7 % (27.0-41.0); MEAN CELL VOLUME 82.6 fl (80.0-94.0); MEAN CORPUSCULAR HGB 25.4 pg (27.0-31.0); MEAN CORPUSCULAR HGB CONC 30.8 g/dl (33.0-37.0); MEAN PLATELET VOLUME 11.2 fl (9.6-12.3); MONO # 0.6 10*3/uL (0.1-1.0); MONO % 9.7 % (3.0-9.0); NEUT # 3.4 10*3/uL (2.3-7.9); NEUT % 58.7 % (47.0-73.0); PLATELET COUNT AUTOMATED 228 10*3/uL (130-400); RED BLOOD COUNT 3.34 10*6/uL (4.50-5.90); RED CELL DISTRI WIDTH 16.4 % (0-14.5); WHITE BLOOD COUNT 5.8 10*3/uL (4.8-10.8)
[2018-07-21 08:13] LABS: ALBUMIN 2.1 gm/dl (3.1-4.5); ALKALINE PHOSPHATASE 74 U/L (45-117); BUN 21 mg/dl (7-24); CHLORIDE 104 mmol/L (98-107); CHOLESTEROL 118 mg/dL (<200); CREATININE 0.77 mg/dL (0.70-1.30); HDL CHOLESTEROL 33 mg/dl (40-60); LDL CHOLESTEROL 71 mg/dL (9-159); POTASSIUM 4.4 mmol/L (3.5-5.1); SGOT/AST 19 IU/L (3-35); SGPT/ALT 28 U/L (12-78); SODIUM 139 mmol/L (136-145); TOTAL PROTEIN 6.5 gm/dL (6.4-8.2); TRIGLYCERIDES 69 mg/dl (<150); VLDL CHOLESTEROL 14 mg/dL (6-40)
--- NOTE | 2018-07-21 08:56 | NUR ---
Patient comes from [facility] and can return when medically stable for discharge.
--- NOTE | 2018-07-21 09:00 | NUR ---
TRACH CARE AND MOUTH CARE GIVEN. TRACH LAVAGED WITH SALINE AND SUCTIONED WITH TRACH HERNANDES. GAUZE CHANGED AND INNER CANNULA CLEANED. PT TOLERATED WELL.
--- NOTE | 2018-07-21 09:22 | NUR ---
FLEETS ENEMA FOLLOWED BY TAP WATER ENEMA X3 UNTIL CLEAR, PER DR TREVINO'S ORDER. PT SEEMED TO TOLERATE IT WELL. PT UNABLE TO ASSIST D/T TO CATATONIC STATE. PT HAD LARGE IMPACTIONB OF HARDENED,GREEN STOOL.PERICARE PROVIDED.
[2018-07-21 09:27] LABS: VITAMIN D, 25-HYDROXY 31.4 ng/mL (30-100)
--- NOTE | 2018-07-21 10:00 | NUR ---
NOTIFIED DR SHAW OF NEW CONSULT FOR COCCYX WOUND,ORDERS RECIEVED.
--- NOTE | 2018-07-21 10:05 | NUR ---
DR TREVINO CALLED TO CHECK PROGRESS OF PT. NOTIFIED HIM PT HAD FLEETS AND TAP WATER ENEMA X3 UNTIL CLEAR BUT EXPLAINED PT WAS IMPACTED WITH HARDENED GREEN STOOL.
--- NOTE | 2018-07-21 11:09 | NUR ---
PT IS SENIOR CARE CARE AT [facility] AND CAN RETURN WHEN MEDICALLY STABLE. WILL CONTINUE TO FOLLOW.
--- NOTE | 2018-07-21 12:45 | NUR ---
JUSTICE PLACED BY DR SHAW AT BEDSIDE.PT TOLERATED WELL.
--- NOTE | 2018-07-21 13:04 | NUR ---
SPOKE TO DAUGHTER REGARDING PERMISSION FOR PT TO HAVE DEBRIDEMENT BY DR SHAW PRIOR TO WHILE EGD/COLO WITH DR TREVINO.ADVISED DAUGHTER TO STAY BY THE PHONE FOR CONSENT TO BE OBTAINED. .
--- NOTE | 2018-07-21 13:57 | NUR ---
PT OFF FLOOR VIA BED FOR DEBRIDEMENT WITH DR SHAW PRIOR TO EGD/COLO WITH DR TREVINO.
--- NOTE | 2018-07-21 16:15 | NUR ---
PT RETURNED FROM OR. VITALS OBTAINED. PT STABLE AT THIS TIME.RESPSP EASY ON 28% PURITON. NO DISTRESS NOTED, . DRESSING D&I TO COCCYX, NO SHADOWING NOTED.
--- NOTE | 2018-07-21 19:00 | NUR ---
PT AWAKE NON RESPONSIVE DURING BEDSIDE SHIFT REPORT. COCCYX DRSG DRY/INTACT. PT REPOSITIONED FOR COMFORT. HOB ELEVATED TO 30 DEGREES. BED IN LOW POSITION W/WHEELS LOCKED AND ALARM ON. TF INFUSING AT 70CC/HR WITHOUT DIFF INTO PEG IN MID UPPER QUAD. TRACH IN PLACE W/5L KIRAN.
[2018-07-22] VITALS: BP 121/64
--- NOTE | 2018-07-22 06:04 | NUR ---
24 HR chart check completed.
[2018-07-22 06:48] LABS: BASO % 0.5 % (0.0-1.0); EOS # 0.3 10*3/uL (0.0-0.4); EOS % 5.3 % (1.0-4.0); HEMATOCRIT 28.8 % (42.0-52.0); HEMOGLOBIN 8.8 g/dl (14.0-18.0); LYMPH # 1.2 10*3/uL (1.3-4.4); LYMPH % 20.9 % (27.0-41.0); MEAN CORPUSCULAR HGB 25.4 pg (27.0-31.0); MEAN CORPUSCULAR HGB CONC 30.6 g/dl (33.0-37.0); MEAN PLATELET VOLUME 11.7 fl (9.6-12.3); MONO # 0.6 10*3/uL (0.1-1.0); MONO % 10.2 % (3.0-9.0); NEUT # 3.6 10*3/uL (2.3-7.9); NEUT % 62.9 % (47.0-73.0); PLATELET COUNT AUTOMATED 251 10*3/uL (130-400); RED BLOOD COUNT 3.47 10*6/uL (4.50-5.90); RED CELL DISTRI WIDTH 16.4 % (0-14.5); WHITE BLOOD COUNT 5.7 10*3/uL (4.8-10.8)
[2018-07-22 07:08] LABS: ALBUMIN 2.1 gm/dl (3.1-4.5); ALKALINE PHOSPHATASE 74 U/L (45-117); BUN 19 mg/dl (7-24); CHLORIDE 106 mmol/L (98-107); CREATININE 0.76 mg/dL (0.70-1.30); POTASSIUM 4.1 mmol/L (3.5-5.1); SGOT/AST 14 IU/L (3-35); SGPT/ALT 27 U/L (12-78); SODIUM 140 mmol/L (136-145); TOTAL PROTEIN 6.3 gm/dL (6.4-8.2)
[2018-07-22 08:00] VITALS: BP 124/64; BP 136/68
--- NOTE | 2018-07-22 09:19 | NUR ---
TRACH CARE DONE, INNER CANNULA CLEANED, TRACH TIES CHANGE, MOUTH CARE DONE. PT. WAS SX AND TOLERATED ALL CARE WELL.
[2018-07-22 12:00] VITALS: BP 125/64
--- NOTE | 2018-07-22 15:08 | NUR ---
DR QUINTERO CALLED FOR NEW CONSULT FOR DR VALENTINE.
[2018-07-22 16:00] VITALS: BP 144/80
--- NOTE | 2018-07-22 19:30 | NUR ---
PT RESTING QUIETLY IN BED DURING BEDSIDE SHIFT REPORT. NO S/S OF DISTRESS NOTED. DRSG TO COCCYX DRY/INTACT. TUBE FEED INFUSING AT 70CC/HR. BED IN LOW POSITION W/WHEELS LOCKED AND ALARM ON. CALL LIGHT IN REACH.
[2018-07-22 20:00] VITALS: BP 114/82
--- NOTE | 2018-07-22 20:23 | NUR ---
DR. ACKERMAN NOTIFIED OF PT NEW ONSET OF AFIB TODAY. T.O. VD FOR DR. MARSH CONSULT, CBC W/DIFF AND CMP IN AM, 2D ECHO TUESDAY MORNING, RESTART ELIQUIS 5MG VIA PEG BID TO START TONIGHT.
--- NOTE | 2018-07-22 20:29 | NUR ---
PHYSICIAN WAS NOTIFIED OF DR. MARSH CONSULT. RESPONSE OF NOTIFICATION WAS WILL SEE PT TOMORROW MORNING. DREW MÉNDEZ
[2018-07-22 21:00] VITALS: BP 135/75
--- NOTE | 2018-07-22 21:55 | NUR ---
PT MEDICATED W/ NORCO FOR LOW GRADE TEMP OF 100.9 AND FACIAL GRIMACING. REPOSITIONED FOR COMFORT. PEG TUBE FLUSHED W/OUT DIFF. SUCTIONED FOR MODERATE AMOUNT OF THICK KURTZ SPUTUM W/FOUL ODOR. WILL CONTINUE TO MONITOR PT FOR S/S OF DISTRESS.
--- NOTE | 2018-07-22 23:00 | NUR ---
PT RESTING QUIETLY IN BED. NO FURTHER S/S OF DISTRESS NOTED.
[2018-07-23] VITALS: BP 115/68
--- NOTE | 2018-07-23 03:20 | NUR ---
PT HAS HAD COPIUS AMOUNTS OF THICK KURTZ BLOOD TINGED SPUTUM VIA TRACH W/FOUL ODOR. HAS HX OF MRSA IN SPUTUM. WOULD YOU LIKE TO OBTAIN C&S OF SPUTUM THIS ADMISSION ONE HAS NOT BEEN OBTAINED AND PT IS NOT CURRENTLY ON ATB'S.
--- NOTE | 2018-07-23 03:22 | NUR ---
SUCTIONED PT FOR COPIOUS AMOUNT OF THICK KURTZ BLOOD-TINGED SPUTUM W/FOUL ODOR. PT TOLERATED WELL. PHYSICIAN NOTE SENT TO DR. ACKERMAN REQUESTING C&S OF SPUTUM.
--- NOTE | 2018-07-23 03:49 | NUR ---
24 HR chart check completed.
[2018-07-23 06:21] LABS: BASO % 0.4 % (0.0-1.0); EOS # 0.3 10*3/uL (0.0-0.4); EOS % 2.6 % (1.0-4.0); HEMATOCRIT 28.1 % (42.0-52.0); HEMOGLOBIN 8.6 g/dl (14.0-18.0); LYMPH # 1.8 10*3/uL (1.3-4.4); LYMPH % 19.3 % (27.0-41.0); MEAN CELL VOLUME 82.4 fl (80.0-94.0); MEAN CORPUSCULAR HGB 25.2 pg (27.0-31.0); MEAN CORPUSCULAR HGB CONC 30.6 g/dl (33.0-37.0); MEAN PLATELET VOLUME 11.7 fl (9.6-12.3); MONO # 1.4 10*3/uL (0.1-1.0); NEUT # 5.9 10*3/uL (2.3-7.9); NEUT % 62.4 % (47.0-73.0); PLATELET COUNT AUTOMATED 263 10*3/uL (130-400); RED BLOOD COUNT 3.41 10*6/uL (4.50-5.90); RED CELL DISTRI WIDTH 16.7 % (0-14.5); WHITE BLOOD COUNT 9.5 10*3/uL (4.8-10.8)
[2018-07-23 06:33] LABS: ALBUMIN 2.2 gm/dl (3.1-4.5); ALKALINE PHOSPHATASE 71 U/L (45-117); BUN 15 mg/dl (7-24); CHLORIDE 103 mmol/L (98-107); CREATININE 0.67 mg/dL (0.70-1.30); POTASSIUM 4.5 mmol/L (3.5-5.1); SGOT/AST 10 IU/L (3-35); SGPT/ALT 24 U/L (12-78); SODIUM 135 mmol/L (136-145); TOTAL PROTEIN 6.6 gm/dL (6.4-8.2)
[2018-07-23 08:00] VITALS: BP 142/68
--- NOTE | 2018-07-23 08:14 | NUR ---
PATIENT ADMINISTERED TYLENOL FOR TEMP 100.3. WILL MONITOR FOR EFFECTIVENESS.
--- NOTE | 2018-07-23 09:45 | NUR ---
TEMP RECHECKED 98.3 AFTER ADMINISTRATION OF TYLENOL. WILL CONTINUE TO MONITOR.
[2018-07-23 12:00] VITALS: BP 131/77
--- NOTE | 2018-07-23 12:20 | NUR ---
TRACH CARE COMPLETE. INNER CANNULA CLEANED AND GAUZE REPLACED WITH CLEAN ONES. THERE WAS A SMALL AMT OF BLOOD UNDER THE TRACH WHICH WAS CLEANED WELL. MOUTH CARE WAS COMPLETED.
--- NOTE | 2018-07-23 14:45 | NUR ---
DR. ACKERMAN IN TO SEE PATIENT. INFORMED ABOUT INTERMITTENT FEVERS. NEW ORDERS RECEIVED.
[2018-07-23 15:38] LABS: BILIRUBIN NEGATIVE (NEGATIVE); BLOOD NEGATIVE (NEGATIVE); CLARITY CLEAR (CLEAR); COLOR YELLOW (YELLOW); GLUCOSE NEGATIVE (NEGATIVE); KETONE NEGATIVE (NEGATIVE); LEUKO ESTERASE 2+ (NEGATIVE); NITRITE NEGATIVE (NEGATIVE); PH 7.5 (5.0-9.0); SPECIFIC GRAVITY 1.015 (1.005-1.030)
[2018-07-23 15:58] LABS: BACTERIA TRACE
[2018-07-23 16:00] VITALS: BP 149/77
--- NOTE | 2018-07-23 16:20 | NUR ---
TYLENOL ADMINISTERED PER RECTAL TEMP OF 101.6. WILL MONITOR FOR EFFECTIVENESS.
--- NOTE | 2018-07-23 18:00 | NUR ---
PATIENT TEMP 100.6 AFTER ADMINISTRATION OF TYLENOL AT 1620. NORCO ADMINISTERED FOR TEMP. WILL MONITOR FOR EFFECTIVENESS.
--- NOTE | 2018-07-23 18:32 | NUR ---
Shift chart check completed.
--- NOTE | 2018-07-23 19:30 | NUR ---
PT RESTING IN BED W/EYES OPEN. DOES NOT TRACK W/EYES OR FOLLOW COMMANDS. NON-PURPOSEFUL MOVEMENTS NOTED. NO S/S OF DISTRESS NOTED. BED IN LOW POSITION W/WHEELS LOCKED AND ALARM ON.
[2018-07-23 20:00] VITALS: BP 135/77
--- NOTE | 2018-07-23 20:40 | NUR ---
DR. ACKERMAN NOTIFIED OF PT'S WOUND CX RESULTS AND SENSITIVITY ALONG W/PCN ALLERGY. N.O. RCVD TO CONSULT I&D.
--- NOTE | 2018-07-23 20:55 | NUR ---
DR. LEGER NOTIFIED OF NEW CONSULT. T.O. VD FOR VANCOMYCIN PHARMACY TO DOSE AND CEFTRIAXONE 2GM IV DAILY. WILL SEE PT TOMORROW.
[2018-07-24] VITALS: BP 141/74
--- NOTE | 2018-07-24 03:20 | NUR ---
ASSUMED CARE OF THIS PATIENT AT THIS TIME. RECEIVED THOROUGH BEDSIDE REPORT FROM MARKIE GILLILAND. PATIENT RESTING COMFORTABLY IN HIS BED AT THIS TIME. NO S/S OF DISTRESS. CALL LIGHT WITHIN REACH. RESP EASY.
--- NOTE | 2018-07-24 05:39 | NUR ---
PATIENT SUCTIONED WITH CLOSED SUCTION CONNECTED TO CONTINUOUS WALL SUCTION 3 TIMES. A LARGE ABOUT OF THICK YELLOW/WHITE SPUTUM WAS REMOVED. PATIENT STILL HAS RHONCHI, AND A VERY PRODUCTIVE COUGH. PATIENT APPEARS TO BE BREATHING EASIER AFTER SUCTIONING. TOLERATED PROCEDURE WELL. NO S/S OF DISTRESS. CALL LIGHT WITHIN REACH. RESPIRATIONS EASY.
--- NOTE | 2018-07-24 07:30 | NUR ---
PATIENT SUCTIONED WITH CLOSED SUCTION. PATIENT HAS THICK PINK TINGED SPUTUM. TOLERATED PROCEDURE WELL. NO S/S OF DISTRESS. TRACH SPONGE CHANGED AND GOWN CHANGED.
[2018-07-24 07:57] LABS: BASO % 0.3 % (0.0-1.0); EOS # 0.3 10*3/uL (0.0-0.4); EOS % 3.5 % (1.0-4.0); HEMATOCRIT 26.4 % (42.0-52.0); HEMOGLOBIN 8.1 g/dl (14.0-18.0); LYMPH # 0.8 10*3/uL (1.3-4.4); LYMPH % 10.8 % (27.0-41.0); MEAN CORPUSCULAR HGB 25.2 pg (27.0-31.0); MEAN CORPUSCULAR HGB CONC 30.7 g/dl (33.0-37.0); MEAN PLATELET VOLUME 11.1 fl (9.6-12.3); MONO # 0.5 10*3/uL (0.1-1.0); MONO % 7.3 % (3.0-9.0); NEUT # 5.6 10*3/uL (2.3-7.9); NEUT % 77.8 % (47.0-73.0); PLATELET COUNT AUTOMATED 259 10*3/uL (130-400); RED BLOOD COUNT 3.22 10*6/uL (4.50-5.90); RED CELL DISTRI WIDTH 16.9 % (0-14.5); WHITE BLOOD COUNT 7.1 10*3/uL (4.8-10.8)
[2018-07-24 08:13] LABS: ALBUMIN 2.2 gm/dl (3.1-4.5); ALKALINE PHOSPHATASE 72 U/L (45-117); BUN 17 mg/dl (7-24); CHLORIDE 102 mmol/L (98-107); CREATININE 0.74 mg/dL (0.70-1.30); POTASSIUM 4.3 mmol/L (3.5-5.1); SGOT/AST 13 IU/L (3-35); SGPT/ALT 22 U/L (12-78); SODIUM 137 mmol/L (136-145); TOTAL PROTEIN 6.7 gm/dL (6.4-8.2)
--- NOTE | 2018-07-24 10:13 | NUR ---
TRACH CARE DONE, TRACH TIES, GAUZE , AND MASK CHANGED. INNER CANNULA CLEANED. PT. TOLERATED WELL.
[2018-07-24 12:00] VITALS: BP 117/61
--- NOTE | 2018-07-24 12:37 | NUR ---
Spoke with Caren at [facility]. Pt. is [facility] and requires no precert prior to discharge and return to [facility].
--- NOTE | 2018-07-24 17:05 | NUR ---
NOTIFIED DR ANGEL THAT WE DO NOT HAVE THE TOOLS NEEDED TO TRIM THE PATIENT'S FINGERNAILS HERE, AND PODIATRY WILL NOT TRIM THEM EITHER.
--- NOTE | 2018-07-24 19:45 | NUR ---
ASSUMED CARE OF PT AT THIS TIME. PATIENT IS AWAKE IN BED. RESPIRATIONS EASY. NO S/S OF DISTRESS NOTED. TRACH MASK IN PLACE. TUBE FEEDING RUNNING @ 70 ML/HR. HOB ELEVATED > 30 DEGREES. WILL MONITOR. BED LOCKED IN LOW POSITION. BED ALARM INTACT. CALL LIGHT IN REACH.
[2018-07-24 20:00] VITALS: BP 135/88
--- NOTE | 2018-07-24 21:06 | NUR ---
PATIENT'S TRACH SUCTIONED AT THIS TIME. PLACED BACK ON TRACH MASK. WILL MONITOR.
--- NOTE | 2018-07-24 22:49 | NUR ---
NOTIFIED OF CT PELVIS RESULTS. INSTRUCTED TO CALL 'S ANSWERING SERVICE CHERELLE AND INFORM HER OF RESULTS.
--- NOTE | 2018-07-24 22:53 | NUR ---
'S ANSWERING SERVICE PAGED AT THIS TIME.
[2018-07-25] VITALS: BP 129/58
--- NOTE | 2018-07-25 01:33 | NUR ---
PEG TUBE PLACEMENT VERIFIED VIA AIR BOLUS. 0 CCs OF RESIDUAL NOTED. PEG TUBE FLUSHED WITH 250 CCs STERILE WATER. CRUSHED TYLENOL ALSO ADMINISTERED AT THIS TIME FOR RECTAL TEMP 101.0. NEW BAG OF TUBE FEED HUNG PER ORDER-JEVITY 1.2. PATIENT TURNED ON BACK. HOB ELEVATED >30 DEGREES. WILL MONITOR. BED LOCKED IN LOW POSITION. SIDE RAILS UP X3.
--- NOTE | 2018-07-25 02:19 | NUR ---
EARLIER TYLENOL GIVEN THROUGH PEG EFFECTIVE. RECTAL TEMP NOW 99.7, DOWN FROM 101.0. WILL CONTINUE TO MONITOR. CALL LIGHT LEFT IN REACH.
--- NOTE | 2018-07-25 07:51 | NUR ---
ASSUMED CARE OF PATIENT AT THIS TIME. RECEIVED REPORT FROM MARKIE VILLATORO. PATIENT RESTING COMFORTABLY IN HIS BED AT THIS TIME, ASLEEP. RESP EASY. NO S/S OF DISTRESS. CALL LIGHT WITHIN REACH.
[2018-07-25 09:17] LABS: BASO % 0.6 % (0.0-1.0); EOS # 0.3 10*3/uL (0.0-0.4); LYMPH # 0.8 10*3/uL (1.3-4.4); LYMPH % 14.3 % (27.0-41.0); MEAN CELL VOLUME 82.3 fl (80.0-94.0); MEAN CORPUSCULAR HGB 25.3 pg (27.0-31.0); MEAN CORPUSCULAR HGB CONC 30.8 g/dl (33.0-37.0); MEAN PLATELET VOLUME 10.3 fl (9.6-12.3); MONO # 0.5 10*3/uL (0.1-1.0); MONO % 8.5 % (3.0-9.0); NEUT # 3.7 10*3/uL (2.3-7.9); NEUT % 70.4 % (47.0-73.0); PLATELET COUNT AUTOMATED 249 10*3/uL (130-400); RED BLOOD COUNT 3.16 10*6/uL (4.50-5.90); RED CELL DISTRI WIDTH 16.8 % (0-14.5); WHITE BLOOD COUNT 5.3 10*3/uL (4.8-10.8)
[2018-07-25 09:29] LABS: BUN 18 mg/dl (7-24); CHLORIDE 101 mmol/L (98-107); CREATININE 0.75 mg/dL (0.70-1.30); POTASSIUM 4.1 mmol/L (3.5-5.1); SODIUM 137 mmol/L (136-145)
--- NOTE | 2018-07-25 11:21 | NUR ---
CALLED DR SHAW TO NOTIFY HIM OF CT PELVIS RESULTS PER DR LEGER. NO NEW ORDERS RECEIVED AT THIS TIME.
[2018-07-25 12:12] VITALS: BP 112/62
[2018-07-25 16:00] VITALS: BP 112/59
--- NOTE | 2018-07-25 19:30 | NUR ---
ASSUMED CARE OF PT AT THIS TIME. PATIENT RESTING IN BED WITH EYES CLOSED. RESPIRATIONS EASY. NO S/S OF DISTRESS NOTED. TRACH MASK IN USE. WILL MONITOR. BED LOCKED IN LOW POSITION. CALL LIGHT IN REACH.
[2018-07-25 20:00] VITALS: BP 115/65
--- NOTE | 2018-07-25 22:24 | NUR ---
PATIENT MEDICATED WITH CRUSHED TYLENOL VIA PEG TUBE FOR RECTAL TEMP 100.1. PEG TUBE PLACEMENT VERIFIED VIA AIR BOLUS. 0 CCs OF RESIDUAL NOTED. PEG FLUSHED WITH 200 CCs OF STERILE WATER. TUBE FEED RECONNECTED AND INFUSING @ 70 ML/HR. TRACH SUCTIONED AT THIS TIME AND TRACH MASK REAPPLIED. THICK, KURTZ SPUTUM NOTICED. NEW GAUZE DRESSING APPLIED AROUND TRACH SITE. PATIENT PULLED UP IN BED AND REPOSITIONED ON BACK. HOB ELEVATED > 30 DEGREES. HEEL PROTECTORS APPLIED BILATERALLY. IV ABX INFUSING. WILL MONITOR. BED LOCKED IN LOW POSITION. SIDE RAILS UP X3. CALL LIGHT IN REACH.
--- NOTE | 2018-07-25 22:24 | NUR ---
PATIENT MEDICATED WITH CRUSHED TYLENOL VIA PEG TUBE FOR RECTAL TEMP 100.1. PEG TUBE PLACEMENT VERIFIED VIA AIR BOLUS. 0 CCs OF RESIDUAL NOTED. PATIENT FLUSHED WITH 200 CCs OF STERILE WATER. TRACH SUCTIONED AT THIS TIME AND TRACH MASK REAPPLIED. THICK, KURTZ SPUTUM NOTICED. NEW GAUZE DRESSING APPLIED AROUND TRACH SITE. PATIENT PULLED UP IN BED AND REPOSITIONED ON BACK. HOB ELEVATED > 30 DEGREES. HEEL PROTECTORS APPLIED BILATERALLY. IV ABX INFUSING. WILL MONITOR. BED LOCKED IN LOW POSITION. SIDE RAILS UP X3. CALL LIGHT IN REACH.
[2018-07-26 00:05] VITALS: BP 108/67
--- NOTE | 2018-07-26 00:07 | NUR ---
EARLIER TYLENOL EFFECTIVE. PATIENT'S RECTAL TEMP NOW 98.9. WILL CONTINUE TO MONITOR. CALL LIGHT LEFT IN REACH.
--- NOTE | 2018-07-26 02:40 | NUR ---
PATIENT SUCTIONED AT THIS TIME. RECTAL TEMP 98.2. PATIENT HAD SMALL DARK BM. FORMED, BUT SOFT. PT CLEANED UP AND NEW CHUCKS PROVIDED. DRESSING SOILED. DSG CHANGED PER ORDER. PULLED UP IN BED AND REPOSITIONED USING WEDGE. HOB ELEVATED >30 DEGREES. PEG TUBE FLUSHED WITH STERILE WATER. TUBE FEEDING INFUSING. BED LEFT LOCKED IN LOW POSITION. SIDE RAILS UP X3. CALL LIGHT IN REACH.
--- NOTE | 2018-07-26 05:06 | NUR ---
PT SUCTIONED AT THIS TIME. DRESSING AROUND TRACH CHANGED. TRACH MASK REAPPLIED. PEG TUBE FLUSHED WITH 100 CCs STERILE WATER PER ORDER. PLACEMENT VERIFIED VIA AIR BOLUS. DRESSING AROUND PEG TUBE ALSO CHANGED. SITE NOTABLY RED. WILL NOTIFY MD. PEG TUBE FEEDING TURNED BACK ON RUNNING AT 70 ML/HR. RECTAL TEMP TAKEN. 97.4. PATIENT STILL APPEARS DIAPHORETIC DESPITE NO FEVER. PATIENT CLEANED UP WITH WASHRAGS. REPOSITIONED ON L SIDE USING WEDGE. BED LEFT LOCKED IN LOW POSITION. BED RAILS UP X3. CALL LIGHT IN REACH. WILL MONITOR.
--- NOTE | 2018-07-26 05:11 | NUR ---
NOTIFIED OF REDNESS AROUND PEG TUBE AND SMALL AMOUNT OF LEAKING NOTED.
[2018-07-26 08:00] VITALS: BP 104/54
--- NOTE | 2018-07-26 09:30 | NUR ---
DR ANGEL SPOKE WITH PT'S DAUGHTER R/T PICC INSERTION. PT'S DAUGHTER AGREED.
--- NOTE | 2018-07-26 11:21 | NUR ---
PT IS RETIREMENT CARE AT [facility] AND CAN RETURN WHEN MEDICALLY STABLE. WILL CONTINUE TO FOLLOW
--- NOTE | 2018-07-26 11:44 | NUR ---
Sr. Vendor Management Associate in to talk to patient. Patient states lives at HOME with ALONE. There are NO steps in the home. Physician: [facility] Pharmacy: [facility] health services: [facility] HE THINKS Patient's level of ADLs: MODERATE ASSIST Patient has working utilities: YES DME: OXYGEN, PORTABLE TANKS, NEBULIZER Follow-up physician's appointment after d/c: WILL BE MADE BY HOSPITALIST NURSE DIRECTOR ON DISCHARGE Does patient want to access PORTAL?: N Discharge plan PT STATES HE WAS JUST RECENTLY RELEASED FROM [facility] WHERE HE WAS FOR REHAB. STATES HE LIVES AT HOME ALONE AND IS NOT OPPOSED TO GOING BACK TO [facility] IF THE DOCTOR THINKS HE SHOULD. HAS HOME O2, PORTABLE TANKS AND NEBULIZER AT HOME. WILL CONTINUE TO FOLLOW.. SANTOS BIANCHI
[2018-07-26 12:00] VITALS: BP 125/66
--- NOTE | 2018-07-26 13:11 | NUR ---
SPOKE WITH PT'S DARRIUS COSTA, R/T PICC INSERTION. SHE AGREED FOR PICC INSERTION. RADHA AYOUB RN FROM SURGERY ALSO RECEIVIED P[LILIA CONSENT FROM DAUGHTER.
--- NOTE | 2018-07-26 13:12 | NUR ---
SURGERY NURSES HERE TO INSERT PICC LINE.
[2018-07-26 16:00] VITALS: BP 118/64
--- NOTE | 2018-07-26 16:37 | NUR ---
SPOKE WITH DR SHAW R/T POSSIBLE WOUND VAC ON PT'S COCCYX WOUND. DR SHAW STATED THAT HE WOULD CHECK INTO IF THE [facility] WILL PAY FOR IT OR NOT. HE WILL KNOW IN THE AM.
--- NOTE | 2018-07-26 19:30 | NUR ---
ASSUMED CARE OF PATIENT AT THIS TIME. PATIENT ASLEEP IN BED. RESPIRATIONS EASY. TRACH MASK IN USE. NO S/S OF DISTRESS NOTED. WILL MONITOR. BED LOCKED IN LOW POSITION, HOB > 30 DEGRESS, CALL LIGHT IN USE.
[2018-07-26 20:00] VITALS: BP 112/51
--- NOTE | 2018-07-26 23:13 | NUR ---
NOTIFIED OF PICC LINE PLACEMENT TODAY AND CXR RESULTS. STATES SHE WILL PUT IN ORDER TO USE PICC.
[2018-07-26 23:51] VITALS: BP 116/69
--- NOTE | 2018-07-27 01:21 | NUR ---
PATIENT HAD SMALL BOWEL MOVEMENT. CLEANED UP & NEW CHUCKS PROVIDED. PATIENT PULLED UP AND REPOSITIONED IN BED. PEG TUBE PLACEMENT VERIFIED VIA AIR BOLUS. 0 CCs OF RESIDUAL NOTED. FLUSHED WITH 100 CCs OF FREE WATER. PATIENT TOLERATED WELL. TUBE FEED RESTARTED. RESPIRATORY AT BEDSIDE. PATIENT'S TRACH SUCTIONED. MOUTH CARE ALSO DONE AT THIS TIME. PATIENT LEFT WITH BED LOCKED IN LOW POSITION, HOB ELEVATED >30 DEGREES, CALL LIGHT IN REACH. WILL MONITOR.
--- NOTE | 2018-07-27 05:12 | NUR ---
PATIENT SUCTIONED. TRACH DRESSING CHANGED. COCCYX WOUND DSG CHANGED PER ORDER. PEG TUBE FLUSHED WITH 100 CCs STERILE WATER. NEW BAG OF TUBE FEED HUNG. INFUSING AT 70 ML/HR. PA PROVIDED MOUTH CARE. GOWN ALSO CHANGED. NOTICED REDDENED AREA TO CHEST. HYDRAGUARD APPLIED TO THIS AREA FOR COMFORT. PATIENT PULLED UP IN BED AND REPOSITIONED ON L SIDE. HOB ELEVATED > 30 DEGREES. BED LOCKED IN LOW POSITION. CALL LIGHT IN REACH. WILL MONITOR.
--- NOTE | 2018-07-27 08:19 | NUR ---
Eyes open spontaneously. Non-verbal, stiffiness w/ difficult reposiitoning. Trach secure. Inner cannula found in bed , dressing changed re: copious amts clear thick mucous.. PEG tube dressing changed. Feeding noted around site. Dressing to coccyxx secure w/o drainage. lung sounds diminished. Repositioned to left.
--- NOTE | 2018-07-27 08:59 | NUR ---
PTS TRACH CARE WAS DONE. TRACH DOWN SIZED TO 7 PORTEX CUFFED TRACH. PT TOLERATED PROCEDURE WELL. SPO2 98%, HR 95, RR 18. BILATERAL BREATH SOUNDS DIMINISHED. PT WAS SUCTIONED FOR SMALL AMT OF SECREATIONS. TRACH WAS SECURED AND NO ADVERSED REACTION WAS NOTED. RN NOTIFIED
--- NOTE | 2018-07-27 10:40 | NUR ---
RT in and trach decreased to size #7. continues with copious trach secretions, clear thick mucous. cough effective to expel. Repositioned to rt. and oral care was given. Dental caries noted.
--- NOTE | 2018-07-27 11:18 | NUR ---
Dr. Zamarripa was notified of consult.
[2018-07-27 12:00] VITALS: BP 112/74
--- NOTE | 2018-07-27 12:51 | NUR ---
SPEECH PATHOLOGY Evaluation completed as per orders for speaking trials with PMS valve. This assessment was done in conjunction with respiratory therapy. Patient has a medical history signifiant for SIRS, chronic respiratory failure, COPD, MRSA of lungs, Krause's esophagus, esophagitis, gastritis, dysphagia. Tracheotomy was performed about three months ago. Trach tube is a #7 cuffed portex and he tolerates a deflated cuff. Patient does not currently require mechanical ventilation. His secretions range from minimal to copious. He has a PEG tube for feeding. For assessment he was alert, though slow to respond and nonresponsive at times. He was able to maintain eye contact. He was able to follow simple one step commands. Oral assessment revealed presence of a few bottom teeth. Lingual/labial skills were significantly reduced in ROM. Patient was seated upright and suctioned by RT. Baseline pulse ox was obtained at 98. Passy [place] Speaking Valve was placed. Patient tolerated well with no overt difficulty and O2 sats ranging from 97-99. He vocalized to sustain phonation with clear, intelligible quality. He stated his name and yes/no with good clarity. After those utterances, he did not speak any more. Repeated attempts at questions and encouragement were provided but no response was elicited by the patient. Speaking valve was eventually removed. As he was able to tolerate the valve and successfully elicit vocalization, continued trials are recommended to enable patient to vocalize to communicate his basic wants and needs. Refer to report in [employer] for further information. Thank you for this referral. CA CHAVEZ MSCCC-IRONWORKER APPRENTICE
--- NOTE | 2018-07-27 12:58 | NUR ---
Trach sponge changed, copious amts clear mucous. Repositioned to back.
--- NOTE | 2018-07-27 14:56 | NUR ---
SPEECH PATHOLOGY Treatment attempted this pm in order to conduct another trial with speaking valve. Patient was resting with eyes closed. Clinician attempted to awaken him, but he did not open his eyes. Continue treatment plan tomorrow. CA CHAVEZ MSCCC-TECHNICAL SPECIALIST
[2018-07-27 16:00] VITALS: BP 110/69
[2018-07-27 20:00] VITALS: BP 116/61
--- NOTE | 2018-07-27 23:17 | NUR ---
ASSUMED CARE FOR THIS PT AT THIS TIME. PT RESTING QUIETLY IN BED. TUBE FEED INFUSING W/OUT DIFF. CALL LIGHT IN PT'S HAND. BED IN LOW POSITION W/WHEELS LOCKED AND ALARM ON.
--- NOTE | 2018-07-27 23:25 | NUR ---
24 HR chart check completed.
[2018-07-28] VITALS: BP 119/71
--- NOTE | 2018-07-28 02:00 | NUR ---
PT RESTING QUIETLY IN BED. NO S/S OF DISTRESS NOTED. PT TURNED FOR COMFORT. PEG TUBE FLUSHED WITHOUT DIFF. BED ALARM ON W/HOB ELEVATED AT 30 DEGREES. CALL LIGHT IN PT'S HAND.
--- NOTE | 2018-07-28 06:09 | NUR ---
BLOOD DRAW OBTAINED VIA PICC W/OUT DIFF FOR LAB AT THIS TIME.
[2018-07-28 06:54] LABS: BASO % 0.6 % (0.0-1.0); EOS # 0.3 10*3/uL (0.0-0.4); EOS % 5.7 % (1.0-4.0); HEMATOCRIT 27.2 % (42.0-52.0); LYMPH # 1.1 10*3/uL (1.3-4.4); LYMPH % 21.4 % (27.0-41.0); MEAN CELL VOLUME 82.7 fl (80.0-94.0); MEAN CORPUSCULAR HGB 24.3 pg (27.0-31.0); MEAN CORPUSCULAR HGB CONC 29.4 g/dl (33.0-37.0); MEAN PLATELET VOLUME 11.1 fl (9.6-12.3); MONO # 0.5 10*3/uL (0.1-1.0); MONO % 9.6 % (3.0-9.0); NEUT # 3.2 10*3/uL (2.3-7.9); NEUT % 62.5 % (47.0-73.0); PLATELET COUNT AUTOMATED 268 10*3/uL (130-400); RED BLOOD COUNT 3.29 10*6/uL (4.50-5.90); RED CELL DISTRI WIDTH 16.6 % (0-14.5); WHITE BLOOD COUNT 5.1 10*3/uL (4.8-10.8)
[2018-07-28 07:23] LABS: BUN 19 mg/dl (7-24); CHLORIDE 101 mmol/L (98-107); CREATININE 0.66 mg/dL (0.70-1.30); POTASSIUM 4.4 mmol/L (3.5-5.1); SODIUM 136 mmol/L (136-145)
--- NOTE | 2018-07-28 09:17 | NUR ---
Called Dr. Hollis per request of Dr. Higginbotham for wound vac settings. He is not sure of the type of vac so the range is 125-150 mm pressure continuos at moderate to medium intensity.
--- NOTE | 2018-07-28 09:41 | NUR ---
SPEECH THERAPY Patient seen this morning for speech treatment with Passy [place] Speaking Valve (PMSV). Patient alert but appeared disoriented. Patient diaphoretic and resting in bed in reclined position upon arrival. RT present and suctioned patient prior to placement of PMSV with clear secretions present. Baseline Sp02 at 99%. PMSV placed with no change in oxygen saturation throughout treatment. Patient provided with verbal directions and clinician model for voicing with PMSV. Voicing attempted on 1 trial with resulting cough. Patient suctioned orally and instructed to verbalize again. Encouragement provided by clinician and RT but minimal voicing attempted. Patient demonstrated overall minimal response to his name and verbalized directions and questions. Patient tolerated PMSV, but with limited voiced trials this am. PMSV removed and rinsed by clinician, and left to dry at bedside. Continue plan of care with trials of PMSV for increased functional communication. Janessa Carr MA CF-UN[employer] SALES REPRESENTATIVE
[2018-07-28 12:00] VITALS: BP 118/62
--- NOTE | 2018-07-28 13:05 | NUR ---
wound vac order faxed to [facility]
--- NOTE | 2018-07-28 14:41 | NUR ---
DIANNA CURRY [id number] Please refer to the physician's history and physical for past medical history, comorbid conditions, and allergies. Diagnosis: ANEMIA, OCCULT BLOOD POSITIVE STOOL Dominic Score: 10,HIGH RISK WOUND DESCRIPTIONS: Location of the wound: coccyx Type of wound: stage 4 Thickness: Full Size: 5.4cm x 7.0cm x 2.0cm Tunneling: none Undermining: none Sinus Tract: none Presence of Exudate: Purulent Amount: Moderate Color: Yellow, red, brown Odor: Medium Periwound Skin Appearance: Erythema Wound edges: approximated Pain (associated with wound): none at time of assessment How does patient state this happened? pt unable to state how this happened Surface the patient is resting on: Isoflex SKIN PREVENTION RECOMMENDATION: 1. Pressure redistribution support surface as appropriate 2. Elevate heels 3. Remove boots/TEDS every shift and reapply 4. Head of bed 30 degrees as tolerated 5. Assess nutrition and hydration 6. Manage moisture 7. Avoid the use of containment devices while in bed 8. Use absorptive products on surfaces limit layers of linens on bed 9. Turn and reposition every 1-2 hours in bed and every 1 hour in chair as tolerated 10. Weight shifts every 15 minutes while up in chair 11. Offloading with pillows or device to keep heels elevated off bed 12. Monitor skin at least every shift 13. Inspect under medical devices twice a day WOUND TREATMENT RECOMMENDATIONS: Spoke with Dr. Hollis regarding wound vac order he stated that it was okay to d/c and cleanse coccyx with nss and apply sureprep around the wound therahoney to wound bed and lightly pack with maxorb ag and cover with optifoam sacral gentle.
--- NOTE | 2018-07-28 14:44 | NUR ---
Spoke with Dr. Higginbotham regarding upated on wound care recommendations to the coccyx.
[2018-07-28 16:00] VITALS: BP 123/62
[2018-07-28 20:00] VITALS: BP 132/73
--- NOTE | 2018-07-28 20:20 | NUR ---
PT REPOSITIONED IN BED. SUCTIONED BY RESPIRATORY. PEG INFUSING WITH NO PROBLEM. TEDS/SD'S ON. TOLERATING IV ANTIBIOTIC AT THIS TIME. HOB 30 DEGREES. CALL LIGHT IN REACH. WILL CON'T TO MONITOR. SEE SHIFT ASSESSMENT.
--- NOTE | 2018-07-28 22:30 | NUR ---
PT REPOSITIONED AND BATHED IN BED. PT PEG TUBE WAS NOT INFUSING OR WITHDRAWALING. LET SOME JACKI JESUS SIT IN TUBE FOR A WHILE AND WAWS ABLE TO GET IT TO FLUSH. NO RESIDUAL NOTED, FEEDING INFUSING WITH NO PROBLEM. SUCTIONED FOR SMAL AMOUNT THICK SPUTUM. TRACH MASK ON. CALL LIGHT IN REACH. WILL CON'T TO MONITOR.
[2018-07-29] VITALS: BP 124/72
--- NOTE | 2018-07-29 00:30 | NUR ---
PT RESTING IN BED WITH EYES CLOSED, OPENS EYES WITH MOVMENT. REPOSITIONED IN BED. SUCTIONED FOR THICK YELLOW/WHITE SPUTUM. TRACH MASK ON. CALL LIGHT IN REACH. WILL CON'T TO MONITOR. SEE SHIFT ASSESSMENT.
--- NOTE | 2018-07-29 02:32 | NUR ---
Attempted to sxn pt due to audible Rhonchi, and lower than normal SPO2. Secretions were too thick to sxn without lavaging. Lavaged pt with sterile saline, and produced copious amounts of thick yellow sputum. Sxn'd pt five times to clear Rhonchi. SPO2 returned to 99%. Trach care done at this time, as well as changing of soiled dong sxn catheter. Pt tolerated well, and is resting comfortably. RN aware.
--- NOTE | 2018-07-29 04:00 | NUR ---
RESTING IN BED WITH EYES CLOSED. RESP-EASY AT THIS TIME. OXYGEN IN USE VIA TRACH MASK. CALL LIGHT IN REACH WILL CON'T TO MONITOR.
--- NOTE | 2018-07-29 06:15 | NUR ---
PT SUCTIONED FOR THICK YELLOW SPUTUM, PT TOLERATED. TRACH MASK IN USE. REPOSITIONED AND CHECKED IN BED. CALL LIGHT IN REACH. WILL CON'T TO MONITOR.
--- NOTE | 2018-07-29 08:00 | NUR ---
ASSESSMENT COMPLETE. PT LOOKS AT YOU WITH EYES OPEN AND FOLLOWS YOU WITH HIS EYES. RHONICHI NOTED, LARGE AMOUNT OF THICK YELLOW/WHITE SPUTUM SUCTIONED THROUGH TRACH. ABDOMEN SOFT, YELLOW DRAINAGE NOTED AROUND PEG TUBE, SITE CLEANED AND NEW DRAINAGE GAUZE PLACED, NO RESIDUAL NOTED WITH PEG TUBE. TUBE FEEDING INFUSING WITHOUT DIFFICULTY.
[2018-07-29 12:00] VITALS: BP 135/73
--- NOTE | 2018-07-29 12:41 | NUR ---
PATIENT SUCTIONED SEVERAL TIMES FOR A LARGE PALE WHITE AMOUNT. PATIENT TRACHEOSTOMY TUBES CUF WAS INFLATED WITH 5 CC OF AIR TO HELP CONTROL FLUID DRAINAGE INTO THE LUNGS. PATIENT BREATH SOUNDS WERE CLEAR AUDIBLE DURING AUSCILTATION SPO2 95% ON 28% LARGE VOLUME NEBULIZER. TRACH CARE PERFORMED AND NURSE MADE AWARE. CONTINUING TO MONITOR.
[2018-07-29 16:00] VITALS: BP 119/68
--- NOTE | 2018-07-29 18:00 | NUR ---
DR. ACKERMAN WAS IN TO SEE PATIENT, DISCUSS PLAN OF CARE WITH DR. ACKERMAN. MADE HIM AWARE THAT PICC LINE WAS SLUGGISH TO FLUSH INTO ONE PORT AND THE OTHER PORT WAS UNABLE TO FLUSH AT ALL. OBTAINED ORDER FOR CATH FLOW. WILL ADMINISTER WHEN AVAILABLE
--- NOTE | 2018-07-29 18:35 | NUR ---
PT HAD BOWEL MOVEMENT, SOILED COCCYX DRESSING. DRESSING CHANGED PER ORDER. MODERATED AMOUNT OF DRAINAGE TO AREA. PT TOLERATED WELL
--- NOTE | 2018-07-29 19:21 | NUR ---
TUBE FEED BAG CHaNGED, INFUSING WITHOUT DIFFICULTY
[2018-07-29 20:00] VITALS: BP 122/61
[2018-07-30] VITALS: BP 133/57
--- NOTE | 2018-07-30 03:45 | NUR ---
Pt sxn'd for copious amounts of thick yellow sputum. Trach care performed, as well as soiled trach ties changed. Pt tolerated well, and is resting comfortably on 28% via trach mask and large volume nebulizer.
--- NOTE | 2018-07-30 04:41 | NUR ---
24 HR chart check completed.
--- NOTE | 2018-07-30 06:50 | NUR ---
When changing peg tube dressing a moderate amount of clear liquid was coming from the abdomen. When I applied pressure to the lower abdomen a large amount of fluid came out so much it saturated a wash cloth. There wasn't any sign of tube feeding or any other discoloration. Peg tube placement was confirmed, no residual and patient showed no signs of any distress. Called Dr. Mccann because I knew he would be seeing Dr. Higginbotham shortly and he was going to relay the message.
[2018-07-30 08:00] VITALS: BP 135/73
--- NOTE | 2018-07-30 11:48 | NUR ---
PATIENT PLACED ON A PASSY DASHA SPEAKING VALVE WITH THE TRACHEOSTOMY CUFF DEFLATED. PATIENT WAS SUCTIONED BEFORE VALVE PLACEMENT AND AFTER CUFF WAS DEFLATED. PATIENT ABLE TO VOICE YES AND NO AT THE LEVEL OF A WHISPER. CONTINUING TO MONITOR PROGRESS. SPO2 ON 28% AEROSOL TRACH MASK WAS 95%.
[2018-07-30 12:00] VITALS: BP 139/82
--- NOTE | 2018-07-30 12:00 | NUR ---
ASSESSMENT COMPELTE. RESPIRATORY THERAPY IN WITH PATIENT, SUCTIONED - THICK PURLENT YELLOW SPUTUM, PT HAS STRONG COUGH. ABDOMEN SOFT/FLAT. YELLOW DRAINAGE WITH SMALL AMOUNT OF BLOOD NOTED AT INSERTION SITE. PEG SITE CLEANED AND DRAINAGE SPONGE AROUND SITE CHANGED. PEG TUBE FLUSHING WITHOUT DIFFICULTY. PT ANSWERED NO WHEN ASKED A QUESTION, FOLLOWED WITH EYES ON COMMAND. PICC LINE FLUSHING EASILY ON BOTH PORTS AND BLOOD RETURN AT THIS TIME. CATHFLOW WAS PLACED INTO PURPLE PORT ON PREVIOUS SHIFT DUE TO SLUGGISH FLUSHING
--- NOTE | 2018-07-30 13:40 | NUR ---
PATIENT WAS ABLE TO WITHSTAND ABOUT AND 1 AND A HALF ON THE PASSY DASHA VALVE. PATIENT RETURNED TO NO VALVE WITH CUFF INFLATED TO PROTECT LOWER AIRWAYS FROM UPPER RESPIRATORY SECRETIONS.
[2018-07-30 16:00] VITALS: BP 125/68
--- NOTE | 2018-07-30 17:09 | NUR ---
PT COUGHED UP LARGE AMOUNT OF YELLOW SPUTUM, TRACH CARE DONE, GAUZE CHANGED. SUCTIONED PATIENT FOR SMALL AMOUNT OF DARK YELLOW THICK SPUTUM. PT TOLERATED WELL.
--- NOTE | 2018-07-30 18:00 | NUR ---
DISCUSS PATIENT WITH DR. AMADOR, MADE HER AWARE OF PEG TUBE DRAINAGE, NO ORDERS AT THIS TIME
--- NOTE | 2018-07-30 19:03 | NUR ---
Shift chart check completed.24 HR chart check completed.
[2018-07-30 20:00] VITALS: BP 115/67
--- NOTE | 2018-07-30 22:48 | NUR ---
ON ASSESSMENT PATIENT IS ALERT, EYES ARE OPEN, HE MAKES EYE CONTACT, TRACKS MOVEMENT IN THE ROOM. OFFERED NO ATTEMPT TO SPEAK TO ME. TRACH INTACT WITH COPIOUS SECRETIONS. TRACH CARE DONE. ORAL CARE. PEG IN PLACE WITH JEVITY TUBE FEEDINGS. JUSTICE PATENT YELLOW URINE. PICC LINE IN PLACE RT UPPER ARM. BOTH PORTS FLUSH EASILY. BED IN LOW POSITION WITH WHEELS LOCKED. BED EXIT ALARM ACTIVATED. HE'S BEEN REPOSITIONED Q2H. SEE ALL APPROPRIATE INTERVENTIONS.
[2018-07-31] VITALS (10 sets, daily range): BP systolic 90–138; BP diastolic 49–72
--- NOTE | 2018-07-31 00:06 | NUR ---
JUST ACKNOWLEDGED AN ORDER FROM DR JOHNSON FOR A DEBRIDEMENT OF COCCYX IN AM. TUBE FEEDINGS TURNED OFF FOR NPO ORDER. PT'S DAUGHTER WILL NEED TO BE CALLED IN AM FOR CONSENT.
--- NOTE | 2018-07-31 03:57 | NUR ---
COMPLETE BED BATH GIVEN. INCONTINENT OF LARGE AMOUNT PASTY BM. NEW OPTIFOAM APPLIED TO SACRUM. PEG SITE IS REDDENED WITH SOME CRUSTING. PEG CARE DONE. SOME BLEEDING NOTED. NEW DRESSING APPLIED.
--- NOTE | 2018-07-31 06:22 | NUR ---
Recommend follow up for wound care in outpatient setting patient being discharge to another facility at this time.
[2018-07-31 06:58] LABS: BUN 19 mg/dl (7-24); CREATININE 0.67 mg/dL (0.70-1.30)
--- NOTE | 2018-07-31 09:06 | NUR ---
24 HR chart check completed.
--- NOTE | 2018-07-31 14:46 | NUR ---
SPEECH PATHOLOGY Patient was seen for treatment this pm. Patient was alert, looking around room. Treatment targeted voicing with use of Passy [place] speaking valve. RT was present in room to suction and deflate trach cuff. Speaking valve was placed. O2 sats were monitored throughout treatment and remained 98-99. When patient was asked how he felt, he responded "better." He was asked to sustain a vowel and was able to do so with clear, audible sound. After that, he elicited no other response, despite cue and encouragment. He appeared in no distress. Questions were asked by clinician but he did not make eye contact and did not respond. Continued encouragement was provided to speak however he did not. Speaking valve was eventually removed and cleaned. Valve was attempted by RT over the weekend with patient reportedly tolerating without distress, but with little vocalization. Continue therapy plan. CA CHAVEZ MS [facility]-PROCESS IMPROVEMENT SPECIALIST
--- NOTE | 2018-07-31 20:51 | NUR ---
24HR CHART CHECK COMPLETED.
[2018-08-01] VITALS: BP 117/61
--- NOTE | 2018-08-01 08:15 | NUR ---
SURGERY CALLED AND WILL BE PICKING PATIENT UP FOR SURGERY, SCD OFF FOR TRANSPORT, PT HAS BEEN NPO;TUBE FEED ON HOLD. PT SUCTIONED, THICK YELLOW SPUTUM
[2018-08-01 09:00] VITALS: BP 120/66
--- NOTE | 2018-08-01 11:52 | NUR ---
Faxed updates to Caren at [facility] with the order for Wound vac and settings. Asked V.O. to please order wound vac, will follow,.
[2018-08-01 12:00] VITALS: BP 119/66
--- NOTE | 2018-08-01 12:13 | NUR ---
PT BRONCH NOW CHEDULED FOR TOMORROW, TUBE FEEDING RESTARTED, PEG FLUSHED WELL, NO RESIDUAL NOTED AT THIS TIME. PEG SITE WITH SOME DRAINAGE, PHYSICIAN AWARE. DR. AMADOR IN TO SEE PATIENT.
--- NOTE | 2018-08-01 12:22 | NUR ---
Patient's wound vac is onsite at [facility]. Patient can go when medically stable for discharge.
--- NOTE | 2018-08-01 15:30 | NUR ---
PEG TUBE FEED RUNNING WITHOUT DIFFICULTY, PEG TUBE SITE CLEANED, NEW GAUZE APPLIED AROUND SITE, SMALL AMOUNT OF DRAINAGE TO INSERTION SITE NOTED, SOME REDNESS NOTED. PT WOUND VAC INTACT, NO LEAKS. PICC RIGHT UPPER ARM, BOTH LUMENS FLUSH WITHOUT DIFFICULTY. TRACH MASK AT 28%, SUCTIONED FOR THICK YELLOW/WHITE SPUTUM. GAUZE UNDER TRACH CHANGED.
[2018-08-01 16:00] VITALS: BP 110/58
--- NOTE | 2018-08-01 16:51 | NUR ---
NOTIFIED DR. ANGEL THAT BOTH PRIMARY CARE TEAM AND ID TEAM NOTE STATES FOR PATIENT TO CONTINUE WITH MER[place] HOWEVER, THE PREVIOUS ORDER HAD ENDED AND ANTIBIOTIC NEEDED REORDERED. PHYSICIAN STATED SHE WILL REORDER MEDICATION.
--- NOTE | 2018-08-01 16:53 | NUR ---
SPEECH PATHOLOGY Patient was seen for treatment this pm with therapy focusing on use of Passy [place] speaking valve to elicit voicing. Patient was alert and looking around room. Prior to treatment he was suctioned by RT and trach cuff was deflated. Pulse ox was monitored throughout treatment. Initially his pulse ox reading was 89, then increased to 92. At that time, speaking valve was placed. His pulse ox remained at 91-92 throughout treatment, which was noted to be lower than on previous treatment sessions where his readings averaged in the high 90's. Patient was asked questions and encouraged to voice however no verbal responses were elicited today. He followed one simple command during therapy. Despite repeated encouragment, he did not vocalize today. Speaking valve was removed and cleaned. Continue treatment plan. CA CHAVEZ MSCCC-PRODUCE CLERK
--- NOTE | 2018-08-01 18:30 | NUR ---
PT SUCTIONED, THICK YELLOW SPUTUM. PT HAS STRONG COUGH. PT RESTING COMFORTABLY AFTER BEING SUCTIONED.
--- NOTE | 2018-08-01 19:39 | NUR ---
PT RESTING IN BED. NO DISTRESS NOTED CURRENTLY. RESPS EASY AND REG. TUBE FEEDINGS FLOWING WITHOUT DIFFICULTY. WOUND VAC INTACT WITHOUT LEAKS. JUSTICE DRAINING WIHTOUT DIFFICULTY VIA GRAVITY. CALL LIGHT IN REACH.
[2018-08-01 20:00] VITALS: BP 130/68
--- NOTE | 2018-08-01 20:10 | NUR ---
NOTIFIED DR CAPUTO OF TEMP 102.6. PRN TYLENOL GIVEN. WILL RECHECK IN [address] CAPUTO ORDER.
--- NOTE | 2018-08-01 20:30 | NUR ---
PT SUCTION. THICK WHITE-YELLOW MUCOUS NOTED. PT TOLERATED WELL.
--- NOTE | 2018-08-01 21:00 | NUR ---
PT TEMP 99.2 CURRENTLY.
[2018-08-02] VITALS (7 sets, daily range): BP systolic 107–146; BP diastolic 59–97
--- NOTE | 2018-08-02 | NUR ---
PT SUCTIONED AND TRACH DRESSING CHANGE PERFORMED. PT TOLERATED WELL. 100CC FREE FLUSH AND JEVITY PLACED ON HOLD CURRENTLY. NPO FOR BRONCH IN AM.
--- NOTE | 2018-08-02 01:50 | NUR ---
PT SUCTIONED AND AND TRACH DRESSING CHANGED. PT TOLERATED WELL.
--- NOTE | 2018-08-02 04:00 | NUR ---
PT SUCTIONED FOR THICK WHITE MUCOUS. PT TOLERATED WELL.
--- NOTE | 2018-08-02 06:13 | NUR ---
THIS RN ATTEMPTED TO CALL POA FOR ANESTHESIA CONSENT. NO ANSWER AT THIS TIME.
[2018-08-02 06:36] LABS: BASO # 0.1 10*3/uL (0.0-0.1); BASO % 0.6 % (0.0-1.0); EOS # 0.2 10*3/uL (0.0-0.4); EOS % 2.2 % (1.0-4.0); HEMATOCRIT 26.5 % (42.0-52.0); LYMPH # 1.3 10*3/uL (1.3-4.4); LYMPH % 14.9 % (27.0-41.0); MEAN CELL VOLUME 79.3 fl (80.0-94.0); MEAN CORPUSCULAR HGB CONC 30.2 g/dl (33.0-37.0); MEAN PLATELET VOLUME 11.1 fl (9.6-12.3); MONO # 0.9 10*3/uL (0.1-1.0); MONO % 10.1 % (3.0-9.0); NEUT # 6.2 10*3/uL (2.3-7.9); PLATELET COUNT AUTOMATED 314 10*3/uL (130-400); RED BLOOD COUNT 3.34 10*6/uL (4.50-5.90); RED CELL DISTRI WIDTH 16.6 % (0-14.5); WHITE BLOOD COUNT 8.6 10*3/uL (4.8-10.8)
[2018-08-02 06:56] LABS: BUN 20 mg/dl (7-24); CHLORIDE 102 mmol/L (98-107); CREATININE 0.71 mg/dL (0.70-1.30); SODIUM 137 mmol/L (136-145)
[2018-08-02 07:12] LABS: ACT PARTIAL THROMBO TIME 27.9 SECONDS (20.8-31.5); INTERNATIONAL NORM RATIO 1.1 (2.0-3.5)
--- NOTE | 2018-08-02 10:10 | NUR ---
PATIENT SUCTIONED AT THIS TIME. PATIENT TOLERATED IT WELL. PATIENT'S PEG TUBE FLUSHED WITH 100 ML WATER AND TUBE FEED RESTARTED AT THIS TIME.
--- NOTE | 2018-08-02 10:50 | NUR ---
TRACH CARE COMPLETE AT THIS TIME. PATIENT ALSO SUCTIONED AT THIS TIME. PATIENT TOLERATED WELL.
--- NOTE | 2018-08-02 14:04 | NUR ---
PATIENT SUCTIONED AT THIS TIME. PATIENT TOLERATED WELL.
--- NOTE | 2018-08-02 14:43 | NUR ---
SPEECH PATHOLOGY Patient was seen for treatment this pm. Therapy targeted attempts at various forms of answering yes/no questions, as patient has shown limited attempts at vocalization. Speaking valve was not attempted today. Answering yes/no questions via eye blinking was first trialed. He was able to answer the first question correctly but then did not respond to any other by blinking. Attempted head nods but he only shook head "yes" in response to one question. He was then attempted with use of thumb up for yes and thumb down for no. He showed success with this, and was able to clearly lift his right arm to answer simple questions. Some encouragment and cues were given for responses. He showed good accuracy with simple questions when answer was known by clinician. Continue therapy plan to target improving communication abilities. CA CHAVEZ MSCCC-AMUSEMENT MACHINE MECHANIC
--- NOTE | 2018-08-02 17:08 | NUR ---
TRACH CARE COMPLETED AT THIS TIME. PATIENT ALSO SUCTIONED AT THIS TIME. PATIENT TOLERATED WELL.
--- NOTE | 2018-08-02 21:17 | NUR ---
TRACH CARE COMPLETED AT THIS TIME. PATIENT SUCTIONED, PATIENT TOLERATED WELL. NEW BAG OF TUBE FEED HUNG AT THIS TIME. PEG TUBE FLUSHED WITH 100 CC WATER. PATIENT TOLERATED WELL.
--- NOTE | 2018-08-02 23:15 | NUR ---
TRACHE CARE PROVIDED . PATIENT SUCTIONED , TOLERATED WELL.
[2018-08-03] VITALS: BP 103/67
--- NOTE | 2018-08-03 01:18 | NUR ---
24 HR chart check completed.
--- NOTE | 2018-08-03 01:50 | NUR ---
TRACHED CARE PROVIDED. PATIENT ALSO SUCTIONED. PATIENT TOLERATED WELL. PEG TUBE FLUSHED WITH 100 CC FREE WATER.
[2018-08-03 08:00] VITALS: BP 113/62
[2018-08-03 08:45] LABS: BASO # 0.1 10*3/uL (0.0-0.1); BASO % 0.7 % (0.0-1.0); EOS # 0.4 10*3/uL (0.0-0.4); EOS % 5.3 % (1.0-4.0); HEMATOCRIT 28.2 % (42.0-52.0); HEMOGLOBIN 8.3 g/dl (14.0-18.0); LYMPH # 1.5 10*3/uL (1.3-4.4); LYMPH % 20.2 % (27.0-41.0); MEAN CORPUSCULAR HGB 23.9 pg (27.0-31.0); MEAN CORPUSCULAR HGB CONC 29.4 g/dl (33.0-37.0); MEAN PLATELET VOLUME 9.9 fl (9.6-12.3); MONO # 0.7 10*3/uL (0.1-1.0); MONO % 9.7 % (3.0-9.0); NEUT # 4.7 10*3/uL (2.3-7.9); PLATELET COUNT AUTOMATED 322 10*3/uL (130-400); RED BLOOD COUNT 3.48 10*6/uL (4.50-5.90); RED CELL DISTRI WIDTH 16.8 % (0-14.5); WHITE BLOOD COUNT 7.4 10*3/uL (4.8-10.8)
[2018-08-03 09:23] LABS: ALBUMIN 2.2 gm/dl (3.1-4.5); ALKALINE PHOSPHATASE 84 U/L (45-117); BUN 18 mg/dl (7-24); CHLORIDE 103 mmol/L (98-107); CREATININE 0.76 mg/dL (0.70-1.30); POTASSIUM 4.3 mmol/L (3.5-5.1); SGOT/AST 15 IU/L (3-35); SGPT/ALT 24 U/L (12-78); SODIUM 141 mmol/L (136-145); TOTAL PROTEIN 6.6 gm/dL (6.4-8.2)
--- NOTE | 2018-08-03 11:29 | NUR ---
PT IS CUSTODIAL CARE AT [facility] AND CAN RETURN WHEN MEDICALLY STABLE. WOUND VAC AT [facility].
[2018-08-03 12:00] VITALS: BP 112/63
[2018-08-03 13:05] LABS: ACID FAST SPEC PROCESSING Concentration (.)
--- NOTE | 2018-08-03 13:14 | NUR ---
SPEECH PATHOLOGY Patient was seen for treatment this pm. Treatment has been targeting use of speaking valve to elicit voicing however since his attempts with this have been so minimal, treatment today focused on nonverbal means of communication. Patient was awake but noted to be less alert than on prior sessions. Attempted yes/no questions using thumbs up and thumbs down. When doing this, he was 70% accurate in his responses, however his movements were minimal and he required encoragement to elicit a response. He was able to follow simple one step commands 80% of the time. He began closing his eyes more and appeared tired therefore session was terminated at this point. Continue therapy plan. CA CHAVEZ MSCCC-BILLER
[2018-08-03 16:00] VITALS: BP 110/64
--- NOTE | 2018-08-03 19:55 | NUR ---
TRACHE CARE GIVEN . PATIENT SUCTIONED FOR WHITE MUCOUS. PATIENT TOLERATED WELL.
[2018-08-03 20:00] VITALS: BP 123/69
--- NOTE | 2018-08-03 21:40 | NUR ---
TRACHE CARE PROVIDED. PATIENT SUCTIONED TOLERATED WELL. PEG FEED BAG CHANGED. PEG FLUSHED WITH 100 CC FREE .WATER
--- NOTE | 2018-08-03 23:00 | NUR ---
PATIENT SUCTIONED. TRACHE CARE PROVIDED. PATIENT TOLERATED WELL.
[2018-08-04] VITALS: BP 128/73
--- NOTE | 2018-08-04 03:14 | NUR ---
24 HR chart check completed.
--- NOTE | 2018-08-04 07:19 | NUR ---
DIANNA CURRY [id number] Please refer to the physician's history and physical for past medical history, comorbid conditions, and allergies. Diagnosis: ANEMIA, OCCULT BLOOD POSITIVE STOOL Dominic Score: 11,HIGH RISK WOUND DESCRIPTIONS: Wound vac intact to coccyx at 125mmHg continous it was last changed on 08/03/18. Surface the patient is resting on: Isoflex SKIN PREVENTION RECOMMENDATION: 1. Pressure redistribution support surface as appropriate 2. Elevate heels 3. Remove boots/TEDS every shift and reapply 4. Head of bed 30 degrees as tolerated 5. Assess nutrition and hydration 6. Manage moisture 7. Avoid the use of containment devices while in bed 8. Use absorptive products on surfaces limit layers of linens on bed 9. Turn and reposition every 1-2 hours in bed and every 1 hour in chair as tolerated 10. Weight shifts every 15 minutes while up in chair 11. Offloading with pillows or device to keep heels elevated off bed 12. Monitor skin at least every shift 13. Inspect under medical devices twice a day WOUND TREATMENT RECOMMENDATIONS: Cotinue wound vac per order.
[2018-08-04 08:00] VITALS: BP 121/64
--- NOTE | 2018-08-04 09:00 | NUR ---
DR. ESCALERA IN TO SEE PATIENT. STATES THAT PATIENT IS READY TO GO BACK TO [facility] ON ANTIBIOTICS FROM HIS STAND POINT.
--- NOTE | 2018-08-04 09:53 | NUR ---
SPEECH PATHOLOGY Attempted therapy this am. Patient was lying in bed with eyes open, looking at ceiling when clinician arrived. When clinician greeted him he closed eyes. Patient did not open eyes for remainder of time while clinician was present. Did not seem to be asleep, however, he remained unresponsive to questions and did not participate in therapy despite numerous attempts to communicate with him. Will attempt at later time. Grant Alejandra MA CF-LICENSED AND CERTIFIED MIDWIFE
[2018-08-04 12:00] VITALS: BP 112/65
--- NOTE | 2018-08-04 12:28 | NUR ---
NEW BAG OF JEVITY TUBE FEED HUNG AT THIS TIME. PEG TUBE FLUSHED WITH 100 ML. PATIENT TOLERATED WELL.
--- NOTE | 2018-08-04 13:55 | NUR ---
Patient information given to Dinah LENNON; Dinah is reviewing information; will follow
--- NOTE | 2018-08-04 15:00 | NUR ---
[facility] stating they need some kind of documentation showing patient has active [place] medicaid; They have discussed with [facility] ([facility] and are working on the solution, patient cannot go to [facility] until this matter is resolved, but patient can return to [facility] at anytime if medically stable for discharge.
[2018-08-04 16:00] VITALS: BP 148/92
--- NOTE | 2018-08-04 18:00 | NUR ---
WENT IN TO CHECK ON PATIENT, PATIENT WET WITH TUBE FEED. PATIENTS PEG TUBE FELL OUT. DR. SHAW ON FLOOR AT THIS TIME. ORDERED TO PUT A JUSTICE IN THE PEG TUBE HOLE TO KEEP AREA OPEN AND HE WILL GO GET A NEW TUBE TO PUT IN PATIENT. JUSTICE WENT IN EASY WITH NO DISTRESS. PATIENT TOLERATED WELL.
--- NOTE | 2018-08-04 19:32 | NUR ---
PER DR VALERIA LEVIN FOR PEG TUBE USE. PLACEMENT VERIFIED WITH AIR BOLUS.
[2018-08-04 20:00] VITALS: BP 114/62
[2018-08-05] VITALS: BP 111/64
--- NOTE | 2018-08-05 07:49 | NUR ---
PATIENT SUCTIONED AT THIS TIME. TOELRATED WELL.
[2018-08-05 08:00] VITALS: BP 122/69
[2018-08-05 12:00] VITALS: BP 123/69
[2018-08-05 16:00] VITALS: BP 106/63
[2018-08-05 20:00] VITALS: BP 126/71; BP 184/75
--- NOTE | 2018-08-05 20:30 | NUR ---
PATIENT SUCTIONED AT THIS TIME FOR SMALL AMOUNTS OF THICK WHITE/YELLOW SPUTUM. PATIENT TOLERATED WELL. PATIENT RESPIRATIONS HAVE BECOME QUIET AND COUGH HAS DECREASED SINCE SUCTIONING. NEW TUBE FEED ALSO INITIATED AT THIS TIME. JEVITY 1.2 @ 70ML/HR. PATIENT TOLERATING WELL. HEAD OF BED LOCKED AT 3O DEGRESS TO PREVENT ASPIRATION. BED ALARM ON FOR PATIENT SAFETY. RN WILL CONTINUE TO MONITOR THIS PATIENT
--- NOTE | 2018-08-05 21:30 | NUR ---
PATIENT SUCTIONED AT THIS TIME.PATIENT TOLERATED WELL. LARGE AMOUNT OF WHITE/YELLOWISH MUCUOS OUT AT THIS TIME
[2018-08-06] VITALS: BP 116/69
--- NOTE | 2018-08-06 00:39 | NUR ---
PT SUCTIONED FOR THICK WHITE SPUTUM. PT TOLERATED WELL.
--- NOTE | 2018-08-06 02:00 | NUR ---
PT SUCTIONED FOR THICK WHITE SPUTUM. PT TOLERATED WELL.
[2018-08-06 04:00] VITALS: BP 134/63
--- NOTE | 2018-08-06 04:00 | NUR ---
PT SUCTIONED FOR THICK WHIT SPUTUM AND DRESSING CHANGE. PT TOLERATED WELL.
--- NOTE | 2018-08-06 06:17 | NUR ---
PT SUCTIONED FOR THICK WHITE SPUTUM. TOLERATED WELL.
[2018-08-06 07:13] LABS: BASO # 0.1 10*3/uL (0.0-0.1); BASO % 0.9 % (0.0-1.0); EOS # 0.3 10*3/uL (0.0-0.4); EOS % 4.8 % (1.0-4.0); HEMOGLOBIN 7.9 g/dl (14.0-18.0); LYMPH % 15.9 % (27.0-41.0); MEAN CELL VOLUME 80.5 fl (80.0-94.0); MEAN CORPUSCULAR HGB 24.5 pg (27.0-31.0); MEAN CORPUSCULAR HGB CONC 30.4 g/dl (33.0-37.0); MEAN PLATELET VOLUME 10.3 fl (9.6-12.3); MONO # 0.7 10*3/uL (0.1-1.0); MONO % 10.4 % (3.0-9.0); NEUT # 4.4 10*3/uL (2.3-7.9); NEUT % 67.7 % (47.0-73.0); PLATELET COUNT AUTOMATED 375 10*3/uL (130-400); RED BLOOD COUNT 3.23 10*6/uL (4.50-5.90); RED CELL DISTRI WIDTH 16.8 % (0-14.5); WHITE BLOOD COUNT 6.5 10*3/uL (4.8-10.8)
[2018-08-06 07:23] LABS: CHLORIDE 101 mmol/L (98-107); POTASSIUM 4.1 mmol/L (3.5-5.1); SODIUM 135 mmol/L (136-145)
[2018-08-06 07:32] LABS: ALBUMIN 2.1 gm/dl (3.1-4.5); ALKALINE PHOSPHATASE 89 U/L (45-117); BUN 23 mg/dl (7-24); CREATININE 0.74 mg/dL (0.70-1.30); SGOT/AST 19 IU/L (3-35); SGPT/ALT 36 U/L (12-78); TOTAL PROTEIN 6.7 gm/dL (6.4-8.2)
[2018-08-06 08:00] VITALS: BP 118/72; BP 123/70
--- NOTE | 2018-08-06 09:10 | NUR ---
PT TRACH SUCTIONED FOR EXCESSIVE AMOUNT OF YELLOW MUCUS.LARGE AMOUNT OF PURELENT DRAINAGE NOTED TO PEG SITE.CLEANSED WITH NORMAL SALINE DRESSING APPLIED.PT CURRENTLY BEING BATHED BY PA'S. NO DISTRESS NOTED.
--- NOTE | 2018-08-06 09:13 | NUR ---
TRACH CARE GIVEN. SUCTIONED COPIOUS AMOUNT OF WHITE SPUTUM. INNER CANNULA CLEANED AND SURROUNDING ARE OF TRACH CLEANED AND CLEAN DRESSING PLACED.
--- NOTE | 2018-08-06 10:13 | NUR ---
WOUND VAC DRESSING CHANGED TO COCCYX PER PHYSICIAN ORDER,ATTACHED TO 125 MMHG CONTINUOS SUCTION. TOLERATED WELL.NOTIFIED DR ACKERMAN OF PT PEGSITE AND PT HGB OF 7.9. ORDERS RECIEVED FOR BACTROBAN AND CBC IN AM.
[2018-08-06 12:00] VITALS: BP 119/65
--- NOTE | 2018-08-06 13:28 | NUR ---
PT SUCTIONED FOR EXCESSIVE AMOUNT OF YELLOW MUCUS.NOTIFIED DR ESCALERA AND NO CHANGE IN PLAN OF CARE. SUCTIONING IS BEST COURSE OF TREATMENT.
--- NOTE | 2018-08-06 14:13 | NUR ---
BACTROBAN APPLIED TO PEG PER PHYSICIAN ORDER.SUCTIONED FOR COPIOUS AMOUNT OF YELLOW MUCUS FROM TRACH.PT TOLERATED WELL.NO OTHER DISTRESS NOTED AT THIS TIME.
[2018-08-06 16:00] VITALS: BP 107/60
[2018-08-06 20:00] VITALS: BP 122/67
[2018-08-07] VITALS: BP 119/57
--- NOTE | 2018-08-07 04:40 | NUR ---
PT IS RESTING IN BED AT THIS TIME WITH HIS EYES CLOSED. THERE ARE NO SIGNS OF PAIN OR DISTRESS AT THIS TIME. HE IS CURRENTLY NSR ON THE MONITOR WITH A HEART RATE IN THE 90'S. SLIGHT TREMORS TO LOWER EXTREMITIES ARE NOTED AT THIS TIME. PEG SITE DRESSING IS C/D/I. WOUND VAC TO SACRAL ULCER IS INTACT. THROUGHOUT THE SHIFT PT HAS REQUIRED FREQUENT SUCTIONING FOR INCREASED THICK SECRETIONS FROM TRACHEOSTOMY. JUSTICE CATHETER IS DRAINING STRAW/YELLOW URINE, NO SEDIMENT IS NOTED. CALL LIGHT IS WITHIN REACH AND BED IS IN LOWEST POSITION. WILL CONTINUE TO MONITOR PT.
[2018-08-07 07:41] LABS: BASO # 0.1 10*3/uL (0.0-0.1); EOS # 0.4 10*3/uL (0.0-0.4); EOS % 8.1 % (1.0-4.0); HEMOGLOBIN 7.5 g/dl (14.0-18.0); LYMPH # 1.1 10*3/uL (1.3-4.4); LYMPH % 20.3 % (27.0-41.0); MEAN CELL VOLUME 80.6 fl (80.0-94.0); MEAN CORPUSCULAR HGB 24.2 pg (27.0-31.0); MEAN PLATELET VOLUME 10.3 fl (9.6-12.3); MONO # 0.7 10*3/uL (0.1-1.0); MONO % 13.6 % (3.0-9.0); NEUT % 56.8 % (47.0-73.0); PLATELET COUNT AUTOMATED 360 10*3/uL (130-400); WHITE BLOOD COUNT 5.2 10*3/uL (4.8-10.8)
[2018-08-07 08:00] VITALS: BP 132/70
--- NOTE | 2018-08-07 08:15 | NUR ---
NOTIFIED DR ANGEL OF H/H OF 7.5/25.0.NO NEW ORDERS.
--- NOTE | 2018-08-07 09:49 | NUR ---
PATIENT IS BEING SUCTIONED NEEDED. SUCTIONED AT 0800 AND 0900 REMOVING THICK, YELLOW SPUTUM. PATIENT'S PICC LINE WAS SLUGGISH. PUT PATIENT IN [place] POSITION AND FLUSHED WITH HEPARIN AND NORMAL SALINE. PATIENT BATHED AND MOUTH CARE PROVIDED.
--- NOTE | 2018-08-07 10:04 | NUR ---
SPEECH PATHOLOGY Patient was seen for treatment this am. Therapy focusing on improving communication abilities through verbal and non-verbal means. Responding to yes/no questions via thumbs up and down was targeted. He was usually able to answer simple questions correctly, however his responses were slow and mod-max encouragment was needed for him to respond. [place] speaking valve was also targeted. This was placed following cuff deflation. With encouragment he was able to say "thanks Amaris" to respiratory therapy. Good volume and clear, intelligible sound was elicited. O2 sats remained 92-93 during session. Despite numerous questions, cues and encouragment, no other vocalizations were elicited. Patient closed his eyes and elicited no further response. Valve was removed and cleaned. Overall patient demonstrates ability to tolerate and effectively use PMSV to verbally communicate however he needs to improve participation. COntinue therapy plan as appropriate. CA CHAVEZ [employer]ER
--- NOTE | 2018-08-07 10:59 | NUR ---
Patient has been accepted to [facility] and is ready for patient to be discharged today.
--- NOTE | 2018-08-07 11:18 | NUR ---
PATIENT SUCTIONED AT 1030, TURNED ONTO LEFT SIDE, PEG TUBE FLUSHED WITH 100 CC. NO RESIDUAL, IV TUBING CHANGED. EVETTE ROMANCC
[2018-08-07 12:00] VITALS: BP 106/67
--- NOTE | 2018-08-07 12:36 | NUR ---
CHANGED PIC DRESSING PT RESTING AT THIS TIME. NO CHANGES. ANNIKA GRIJALVA
[2018-08-07] MEDS ORDERED: ELIQUIS5 M1 PEG (13:38)
[2018-08-07] MEDS ORDERED: ERTAPENEM1 GM IV (13:38)
[2018-08-07] MEDS ORDERED: VANCO 750750 MG/250 IV (13:38)
--- NOTE | 2018-08-07 13:48 | NUR ---
WOUND CARE PHOTOS TAKEN PER PROTOCOL. PT TOLERATED WELL. WET TO DRY DRESSING APPLIED PER PHYSICIAN ORDER FOR TRANSPORT TO [facility].
--- NOTE | 2018-08-07 14:08 | NUR ---
NEW BAG OF JEVITY HUNG AT 1300, WET TO DRY DRESSING APPLIED, WOUND VAC D/C, PATIENT BEING TRANSFERRED TO A NEW FACILITY. EVETTE ROMAN
--- NOTE | 2018-08-07 14:30 | NUR ---
REPORT CALLED TO [facility]
--- NOTE | 2018-08-07 14:39 | NUR ---
Patient is discharged to [facility]; transportation scheduled for 3:30 with [place]. [facility] notified. DC informatin faxed to [facility].
--- NOTE | 2018-08-07 16:40 | NUR ---
Discharge instructions reviewed with patient/family. Patient receptive and verbalizes understanding. Follow-up care arranged. Written instructions given to patient/family. JIMBO MOCTEZUMA
--- NOTE | 2018-08-07 17:21 | NUR ---
DAUGHTER RETURNED MY CALL FOR NOTIFICATION OF PT D/C AND BEING TRANSPORTED TO [facility].
[2018-09-13 16:09] LABS: ACID FAST CULTURE Negative (.)
== END 2018-08-07 16:46 | DRG 853 ==
LOC: ED 18:42 → 4E 20:10 → EDHOLD 20:10 → 4E 21:13
PROVIDERS: Internal Medicine Critical Care Medicine; Internal Medicine Nephrology; Nurse Practitioner Family; Student in an Organized Health Care Education/Training Program; ADMIT Internal Medicine
PROC: 0QBS0ZZ Excision of Coccyx, Open Approach (ICD-10-PCS; principal; 2018-07-21)
PROC: 0DJ08ZZ Inspection of Upper Intestinal Tract, Via Natural or Artificial Opening Endoscopic (ICD-10-PCS; 2018-07-21)
PROC: 0DBN8ZX Excision of Sigmoid Colon, Via Natural or Artificial Opening Endoscopic, Diagnostic (ICD-10-PCS; 2018-07-21)
PROC: 30233N1 Transfusion of Nonautologous Red Blood Cells into Peripheral Vein, Percutaneous Approach (ICD-10-PCS; 2018-07-21)
PROC: 02HV33Z Insertion of Infusion Device into Superior Vena Cava, Percutaneous Approach (ICD-10-PCS; 2018-07-26)
PROC: 0KBP0ZZ Excision of Left Hip Muscle, Open Approach (ICD-10-PCS; 2018-07-31)
PROC: 0KBN0ZZ Excision of Right Hip Muscle, Open Approach (ICD-10-PCS; 2018-07-31)
PROC: 0BC18ZZ Extirpation of Matter from Trachea, Via Natural or Artificial Opening Endoscopic (ICD-10-PCS; 2018-08-02)
PROC: 0BC98ZZ Extirpation of Matter from Lingula Bronchus, Via Natural or Artificial Opening Endoscopic (ICD-10-PCS; 2018-08-02)
PROC: 0BC48ZZ Extirpation of Matter from Right Upper Lobe Bronchus, Via Natural or Artificial Opening Endoscopic (ICD-10-PCS; 2018-08-02)
PROC: 0BC88ZZ Extirpation of Matter from Left Upper Lobe Bronchus, Via Natural or Artificial Opening Endoscopic (ICD-10-PCS; 2018-08-02)
PROC: 0BC58ZZ Extirpation of Matter from Right Middle Lobe Bronchus, Via Natural or Artificial Opening Endoscopic (ICD-10-PCS; 2018-08-02)
PROC: 0BC38ZZ Extirpation of Matter from Right Main Bronchus, Via Natural or Artificial Opening Endoscopic (ICD-10-PCS; 2018-08-02)
PROC: 0BC78ZZ Extirpation of Matter from Left Main Bronchus, Via Natural or Artificial Opening Endoscopic (ICD-10-PCS; 2018-08-02)
PROC: 0BC68ZZ Extirpation of Matter from Right Lower Lobe Bronchus, Via Natural or Artificial Opening Endoscopic (ICD-10-PCS; 2018-08-02)
PROC: 0BCB8ZZ Extirpation of Matter from Left Lower Lobe Bronchus, Via Natural or Artificial Opening Endoscopic (ICD-10-PCS; 2018-08-02)
DX: A41.9 Sepsis, unspecified organism (principal); E43 Unspecified severe protein-calorie malnutrition; L89.154 Pressure ulcer of sacral region, stage 4; K29.71 Gastritis, unspecified, with bleeding; K22.11 Ulcer of esophagus with bleeding; J96.10 Chronic respiratory failure, unspecified whether with hypoxia or hypercapnia; M86.8X8 Other osteomyelitis, other site; I82.502 Chronic embolism and thrombosis of unspecified deep veins of left lower extremity; K51.20 Ulcerative (chronic) proctitis without complications; Z68.1 Body mass index [BMI] 19.9 or less, adult; T17.590A Other foreign object in bronchus causing asphyxiation, initial encounter; T17.490A Other foreign object in trachea causing asphyxiation, initial encounter; I10 Essential (primary) hypertension; F06.1 Catatonic disorder due to known physiological condition; E83.41 Hypermagnesemia; Z88.0 Allergy status to penicillin; F32.9 Major depressive disorder, single episode, unspecified; Z86.711 Personal history of pulmonary embolism; Z93.0 Tracheostomy status; L89.150 Pressure ulcer of sacral region, unstageable; J20.9 Acute bronchitis, unspecified; J42 Unspecified chronic bronchitis; I48.0 Paroxysmal atrial fibrillation; D50.0 Iron deficiency anemia secondary to blood loss (chronic); R62.7 Adult failure to thrive; R13.10 Dysphagia, unspecified; X58.XXXA Exposure to other specified factors, initial encounter; Y93.89 Activity, other specified; Y92.89 Other specified places as the place of occurrence of the external cause; Y99.8 Other external cause status